=== PATIENT | female | born 1940 | race Caucasian/White ===

== ENCOUNTER 2022-07-14 08:08 | Inpatient (IN) ==
--- NOTE | 2022-06-14 12:41 | PAT Medication Instructions ---
Medication Instructions Date of Service June 14, 2022 Home Medications aspirin 81 mg tablet 81 mg PO QPM atenolol 100 mg-chlorthalidone 25 mg tablet 1 tab PO QAM felodipine 5 mg tablet,extended release 24 hr 5 mg PO QDD furosemide 20 mg tablet 20 mg PO QAM levothyroxine 175 mcg tablet 175 mcg PO UD lorazepam 0.5 mg tablet 0.5 mg PO HS PRN multivitamin-ferrous fumarate-folic acid 18 mg-400 mcg tablet (Centrum Women) 1 tab PO QAM potassium chloride 2.5 mEq tablet 10 meq PO BID sennosides 8.6 mg tablet (Senokot) 8.6 mg PO BID PRN tizanidine 2 mg tablet 2 mg PO QPM PRN trazodone 50 mg tablet 50 mg PO HS vitamins A,C,D-flrk-fegurm 2,148 mcg-113 mg-45 mg-17.4 mg tablet (PreserVision AREDS) 2 tab PO BID Continue as directed felodipine 5 mg tablet,extended release 24 hr 5 mg PO QDD levothyroxine 175 mcg tablet 175 mcg PO UD STOP taking 2 weeks before surgery vitamins A,C,W-yzsf-kiorhp 2,148 mcg-113 mg-45 mg-17.4 mg tablet (PreserVision AREDS) 2 tab PO BID DO NOT take the morning of surgery furosemide 20 mg tablet 20 mg PO QAM multivitamin-ferrous fumarate-folic acid 18 mg-400 mcg tablet (Centrum Women) 1 tab PO QAM potassium chloride 2.5 mEq tablet 10 meq PO BID sennosides 8.6 mg tablet (Senokot) 8.6 mg PO BID PRN Take morning of surgery With a small sip of water, OTHERWISE NOTHING TO EAT OR DRINK AFTER MIDNIGHT: atenolol 100 mg-chlorthalidone 25 mg tablet 1 tab PO QAM Take evening before surgery aspirin 81 mg tablet 81 mg PO QPM (unless directed otherwise by surgeon) lorazepam 0.5 mg tablet 0.5 mg PO HS PRN(if needed) potassium chloride 2.5 mEq tablet 10 meq PO BID sennosides 8.6 mg tablet (Senokot) 8.6 mg PO BID PRN(if needed) tizanidine 2 mg tablet 2 mg PO QPM PRN(if needed) trazodone 50 mg tablet 50 mg PO HS Other Notes If you have any questions please call us at [phone] or [phone] or [phone] or [phone]
--- NOTE | 2022-06-17 11:31 | Anesthesiology Consultation ---
Date of Service June 17, 2022 Assessment & Plan (1) Encounter for pre-operative examination: - Patient acceptable risk for surgery pending surgeon-ordered PCP preop evaluation (Lashon KUMARI, Sacha Kennedy). - Cardiology office visit (01/17/22): "initially seen for shortness of breath and edema. She had elevated BNP. Subsequent BMP was normal. She had an echocardiogram that showed some LVH with normal LV systolic function. I do not see significant diastolic dysfunction. I repeated a BMP and it was only slightly elevated.. Since she is considering surgery and is very limited in activity I think do a Myoview to rule out significant CAD.. Chronic diastolic heart failure.. I think the mildly elevated BNP is related to her longstanding hypertension possibly some mild chronic diastolic heart failure. She is on diuretics and will continue the same along with blood pressure control. We will also proceed with Lexiscan to rule out significant CAD." Follow-up 1 year recommended. Nuclear stress test done 02/17/2022 was unremarkable." - COVID screening: Per assessment on 06/17: No known COVID-19 positive contacts or current COVID-19 related symptoms. Travel screen negative. Patient vaccinated. At surgeon discretion if preop Covid testing being done. - Outpatient joint assessment: Pt currently scheduled for inpatient pathway. If surgeon requests review for outpatient joint pathway, patient is not recommended candidate for outpatient joint program from anesthesia standpoint. - Possible difficult intubation Chart Review Chart Review: Patient seen in Pre Admission Testing Teaching & Discussion Pre-Anesthesia Teaching/Discussion Notes: Instructed NPO after midnight before surgery,except medications with 15 cc of water. Medication instructions provided according to the PAT guidelines. History Surgery Operation Date: 07/14/22 09:00 Proposed Procedures p Right Shoulder Reverse Total Shoulder Arthroplasty - Victor Hugo Zaidi MD Height/Weight Height: 5 ft 6 in Weight: 89.9 kg Allergies Allergy/AdvReac Type Severity Reaction Status Date / Time Sulfa (Sulfonamide Allergy Mild Rash Verified 06/14/22 08:22 Antibiotics) sulfamethoxazole Allergy Mild Rash Verified 06/14/22 08:22 [From Bactrim] trimethoprim [From Bactrim] Allergy Mild Rash Verified 06/14/22 08:22 Medications Home Medications Medication Instructions Recorded Confirmed Last Taken aspirin 81 mg tablet 81 mg PO QPM 06/14/22 06/14/22 Unknown atenolol 100 mg-chlorthalidone 25 1 tab PO QAM 06/14/22 06/14/22 Unknown mg tablet felodipine 5 mg tablet,extended 5 mg PO QDD 06/14/22 06/14/22 Unknown release 24 hr furosemide 20 mg tablet 20 mg PO QAM 06/14/22 06/14/22 Unknown levothyroxine 175 mcg tablet 175 mcg PO UD 06/14/22 06/14/22 Unknown lorazepam 0.5 mg tablet 0.5 mg PO HS PRN Anxiety 06/14/22 06/14/22 Unknown multivitamin-ferrous 1 tab PO QAM 06/14/22 06/14/22 Unknown fumarate-folic acid 18 mg-400 mcg tablet (Centrum Women) potassium chloride 2.5 mEq tablet 10 meq PO BID 06/14/22 06/14/22 Unknown sennosides 8.6 mg tablet (Senokot) 8.6 mg PO BID PRN Constipation 06/14/22 06/14/22 Unknown tizanidine 2 mg tablet 2 mg PO QPM PRN Muscle Spasm 06/14/22 06/14/22 Unknown trazodone 50 mg tablet 50 mg PO HS 06/14/22 06/14/22 Unknown vitamins A,C,C-tkee-qvrmxa 2,148 2 tab PO BID 06/14/22 06/14/22 Unknown mcg-113 mg-45 mg-17.4 mg tablet (PreserVision AREDS) Past Medical History Medical History (Updated 06/17/22 @ 14:14 by Fabiola Thompson) Anxiety Bifascicular block Chronic Diastolic heart failure Hypertension Hypothyroidism Hx radiation therapy (1997) Obesity Poor historian Exercise / Class Metabolic Activity III < 4 Walking/Shop/Light housework Past Family History Family History Other No family history of adverse response to anesthesia Past Surgical History Surgical History Hx of carpal tunnel repair Right Hx of cataract extraction R/L Hx of colonoscopy Hx of eye surgery Retinal procedure Hx of tonsillectomy Past Anesthesia History No Hx of Anesthesia Complications and No Family Hx of Anesthesia Complications History of PONV No Hx of PONV and No Hx of Motion Sickness Social History Smoking Status: Never smoker Do You Dip or Chew Tobacco: No Hx Alcohol Use: No Hx Substance Use: No substance use type: does not use Review of Systems Patient denies chest pain, shortness of breath, fever, chills, cough, wheezing, palpitations. Physical Exam Vital Signs VITALS BP 124/80 P 77 TEMP 98.1 SP02 98%RA RESP 16 PHYSICAL Significantly decreased cervical extension range of motion (r/t arthritis). Full TMJ range of motion. TMD 3finger breaths Mallampati Score 3 Dentition: intact, + crown Lungs: clear throughout to auscultation Cardiac: regular rate and rhythm, no murmurs noted Spine: normal Carotid arteries: negative bruit Extremities: no edema Lab Results Anesthesia Preop Results Results Anesthesia Widget: WBC 7.66 K/ul (4.8-10.8) 06/17/22 Hgb 13.3 g/dl (12.0-16.0) 06/17/22 Hct 39.0 % (34.1-44.9) 06/17/22 Plt 231 K/uL (130-400) 06/17/22 Na 133 mmol/L (136-145) L 06/17/22 K 3.5 mmol/L (3.5-5.1) 06/17/22 Cl 94 mmol/L (98-107) L 06/17/22 CO2 31 mmol/L (21-32) 06/17/22 BUN 16 mg/dl (6-23) 06/17/22 Creat 0.57 mg/dl (0.6-1.2) L 06/17/22 Glucose Level 87 mg/dl (70-99(Fasting)) 06/17/22 PT 11.3 Seconds (9.0-12.0) 06/17/22 PTT 32.3 Seconds (21.0-31.0) H 06/17/22 INR 1.1 (0.9-1.1) 06/17/22 HA1c 5.5 % (4.5-5.6) 06/17/22 Urine Color Yellow 06/17/22 Urine Appearance Clear (Clear) 06/17/22 Urine pH 8.0 (4.5-7.5) H 06/17/22 Urine Specific [place] 1.015 (1.000-1.030) 06/17/22 Urine Protein Negative (Negative) 06/17/22 Urine Glucose (UA) Negative (Negative) 06/17/22 Urine Ketones Negative (Negative) 06/17/22 Urine Blood Negative (Negative) 06/17/22 Urine Nitrite Negative (Negative) 06/17/22 Urine Bilirubin Negative (Negative) 06/17/22 Urine Urobilinogen Negative (Negative) 06/17/22 Urine Leukocyte Esterase Negative (Negative) 06/17/22 Blood Type A Positive 06/17/22 Antibody Screen NEGATIVE 06/17/22 Testing Electrocardiogram Date: 06/17/22 NSR at 62bpm. RBBB. LAFB. *Bifascicular block* Bifascicular block noted on 04/29/22 EKG scanned in [employer] ([facility]). Per that report- the EKG was compared to 08/17/21 EKG and does not report that bifascicular block is new (does mention septal infarct now present and NS TWA has replaced anterior lead TWI). Echo was done 08/17/21 and stress test done 02/17/22. Chest X-Ray Date: 06/17/22 FINDINGS: The lungs are clear. The cardiac silhouette is mildly enlarged. No pleural effusions. No pneumothorax. Advanced degenerative changes within the shoulders. IMPRESSION: Mild cardiomegaly. Otherwise, no acute process within the chest. Echocardiogram Date: 08/17/21 LVEF 55-60%. No regional motion abnormality. Indeterminate diastolic dysfunction. Mild LVH. Moderate mitral annular calcification. Mild MR. Mild aortic sclerosis without stenosis. Trivial AR. Proximal ascending aorta is mildly dilated at 3.87 cm. Trivial pericardial effusion localized near the left ventricle without tamponade physiology. Stress Test Date: 02/17/22 Type: nuclear Myocardial perfusion appears normal following pharmacologic stress with regadenoson. No reversible or fixed ischemia seen. Mild soft tissue attenuation is present. The ejection fractions are normal. COVID-19 Risk Screen Screening Information COVID-19 Screen Date: 06/17/22 Exposure 21 Days Family/Household +COVID Last 21 Days: No Exposure 10 Days Any COVID Exposure Last 10 Days: No Symptoms Last 10 Days Experienced COVID Sx Last 10 Days: No + COVID 0-90 Days COVID + in Last 0-90 Days: No
--- NOTE | 2022-07-13 16:15 | History & Physical Report ---
Date of Service July 13, 2022 Assessment & Plan (1) Primary osteoarthritis, right shoulder: Plan: Treatment options discussed with the patient. She has failed conservative measures. She will proceed with surgical invention. Risks, benefits and alternatives to surgery including but not limited to infection, DVT, pain, stiffness, need for revision surgery, damage to blood vessels, damage to nerves, PE, , were discussed with the patient and they wish to proceed. Plan on right reverse total shoulder arthroplasty scheduled for July 14 at [facility] with Dr. Zaidi. All questions answered. Patient will follow up postop. History of Present Illness Chief Complaint: Right shoulder pain Primary Care Provider: NO PCP 82-year-old female with past medical history significant for hypertension, high cholesterol, hypothyroidism, Diastolic heart failure who presents with ongoing right shoulder pain. Pain is interfering with her daily activities. She has failed conservative measures. She would like to proceed with surgical invention. Patient denies headaches, sweats, fevers, chills, double vision, blurred vision, cough, sore throat, dysphagia, chest pain, sob, wheezing, n/v/d/c, numbness, tingling, fatigue, urinary symptoms, mood disorders. ROS positive for Right shoulder pain and stiffness. Allergies Allergy/AdvReac Type Severity Reaction Status Date / Time Sulfa (Sulfonamide Allergy Mild Rash Verified 07/14/22 08:37 Antibiotics) sulfamethoxazole Allergy Mild Rash Verified 07/14/22 08:37 [From Bactrim] trimethoprim [From Bactrim] Allergy Mild Rash Verified 07/14/22 08:37 Home Medications Medication Instructions Recorded Confirmed Type aspirin 81 mg tablet 81 mg PO QPM 06/14/22 07/14/22 History atenolol 100 mg-chlorthalidone 25 1 tab PO QAM 06/14/22 07/14/22 History mg tablet (Tenoretic) felodipine 5 mg tablet,extended 5 mg PO QDD 06/14/22 07/14/22 History release 24 hr furosemide 20 mg tablet 20 mg PO QAM 06/14/22 07/14/22 History levothyroxine 175 mcg tablet 175 mcg PO UD 06/14/22 07/14/22 History lorazepam 0.5 mg tablet 0.5 mg PO HS PRN Anxiety 06/14/22 07/14/22 History multivitamin-ferrous 1 tab PO QAM 06/14/22 07/14/22 History fumarate-folic acid 18 mg-400 mcg tablet (Centrum Women) potassium chloride 2.5 mEq tablet 10 meq PO BID 06/14/22 07/14/22 History sennosides 8.6 mg tablet (Senokot) 8.6 mg PO BID PRN Constipation 06/14/22 07/14/22 History tizanidine 2 mg tablet 2 mg PO QPM PRN Muscle Spasm 06/14/22 07/14/22 History trazodone 50 mg tablet 50 mg PO HS 06/14/22 07/14/22 History vitamins A,C,T-ffzp-ocleig 2,148 2 tab PO BID 06/14/22 07/14/22 History mcg-113 mg-45 mg-17.4 mg tablet (PreserVision AREDS) Past Med/Surg History Medical History Anxiety Bifascicular block Chronic Diastolic heart failure Hypertension Hypothyroidism Hx radiation therapy (1997) Obesity Poor historian Surgical History Hx of carpal tunnel repair Right Hx of cataract extraction R/L Hx of colonoscopy Hx of eye surgery Retinal procedure Hx of tonsillectomy Family History Other No family history of adverse response to anesthesia Social History Smoking Status: Never smoker Second Hand Exposure: No; Do You Dip or Chew Tobacco: No; Tobacco Cessation Education Requested by Patient: No Hx Alcohol Use: No Hx Substance Use: No Preferred Language: Syriac Communication Ability: Effective 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 Beliefs That Will Affect Care: None Current Living Situation: Spouse Other Information That Helps Us Care for You: No Feels Safe at Home: Yes Safety Concerns: Feels Safe At This Time Assistive Devices: Glasses Review of Systems All systems reviewed & are unremarkable except as noted in HPI & below Physical Exam Constitutional: well developed and well nourished; no acute distress Eyes: PERRL, conjunctivae normal, anicteric sclerae ENMT: external ear and nose normal, oropharynx normal Neck: trachea midline, no thyromegaly Respiratory: normal respiratory effort, lungs clear to auscultation Cardiovascular: RRR, no murmur, no edema Musculoskeletal: Right shoulder: Crepitation with range of motion. Diffuse tenderness about the shoulder. Positive impingement signs. Painful range of motion. Abduction to 20 degrees actively and 40 degrees passively. Forward flexion 20 degrees active, passive 40 degrees. Pain and weakness to strength testing. Skin: no rashes, warm and dry Neurologic: patellar DTR's 2+ bilat, sensation intact Psychiatric: A+Ox3, euthymic affect Results & Data ([facility]) Diagnostic Findings Right shoulder: Patient has end-stage osteoarthritis right shoulder, [id number] glenohumeral joint. There is periarticular osteophyte formation.
[~2022-07-14 08:08] MED LIST: ACETAMINOPHEN 500 MG TAB PO SCH; BUPIVACAINE 0.5 % 5 MG/1 ML PF 10ML VIAL ONE; FAMOTIDINE 20 MG TAB PO SCH; GABAPENTIN 300 MG CAP PO SCH; LR 15ML/HR IV SCH; METOCLOPRAMIDE HCL 10 MG TABLET PO SCH; TRANEXAMIC ACID 1,000 MG **IV Intra-op IV SCH; TRANEXAMIC ACID 1,000 MG **IV Pre-op IV SCH; ceFAZolin 2000MG 2,000 MG/15 ML SYR IV SCH; dexAMETHasone 4 MG TAB PO SCH
--- NOTE | 2022-07-14 09:14 | History & Physical Bridge Note ---
Date of Service July 14, 2022 History & Physical Bridge Note I have examined the patient, reviewed the History & Physical and in the interval since the performance of the History & Physical I have noted the following changes of clinical significance: no changes noted
[2022-07-14] MEDS ORDERED: fentaNYL citrate 100 MCG/2 ML VIAL ONE (09:20)
[2022-07-14] MEDS ORDERED: MIDAZOLAM HCL 1 MG/ML 2ML VIAL ONE (09:20)
[2022-07-14] MEDS ORDERED: PROPOFOL IV EMULSION 10 MG/ML 20 ML VIAL IV ONE (09:20)
[2022-07-14] MEDS ORDERED: DEXAMETHASONE SOD INJ 4 MG/ML VIAL ONE (09:20)
[2022-07-14] MEDS ORDERED: ONDANSETRON INJ 2 MG/ML 2 ML VIAL ONE (09:20)
[2022-07-14] MEDS ORDERED: ONDANSETRON INJ 2 MG/ML 2 ML VIAL IV PRN ×2 (09:48→14:52)
[2022-07-14] MEDS ORDERED: ATROPINE SULFATE 0.1 MG/ML 10ML SYR IV PRN (09:48)
[2022-07-14] MEDS ORDERED: fentaNYL citrate 100 MCG/2 ML VIAL IV PRN (09:48)
[2022-07-14] MEDS ORDERED: ePHEDrine sulfate 50 MG/ML AMP IV PRN (09:48)
[2022-07-14] MEDS ORDERED: GELATIN SPONGE SZ 100 ONE (12:17)
[2022-07-14] MEDS ORDERED: ROCURONIUM BROMIDE 10 MG/ML 5 ML VIAL IV ONE (13:17)
[2022-07-14] MEDS ORDERED: NEOSTIGMINE METHYLSULFATE 1 MG/ML 10ML VIAL ONE (13:17)
[2022-07-14] MEDS ORDERED: GLYCOPYRROLATE 0.2 MG/ML VIAL ONE ×2 (13:17→13:35)
--- NOTE | 2022-07-14 13:49 | Post Operative Brief Note ---
Immediate Post Op Note v1 Date of Surgery July 14, 2022 Pre & Post Diagnosis Operation Date: 07/14/22 10:20 Pre-Op Diagnosis: Primary Osteoarthritis Shoulder Right, chronic rotator cuff tear Post-Op Diagnosis: Primary Osteoarthritis Shoulder Right, chronic rotator cuff tear, marked subacromial bursitis, biceps tendinopathy, biceps tenosynovitis. 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
--- NOTE | 2022-07-14 14:07 | Operative Report ---
Post Operative Report Pre & Post Diagnosis Operation Date: 07/14/22 10:20 Pre-Op Diagnosis: End-stage glenohumeral osteoarthritis right shoulder. Chronic rotator cuff tear. Post-Op Diagnosis: End-stage glenohumeral osteoarthritis right shoulder. Chronic rotator cuff tear. Biceps tendinopathy with biceps tenosynovitis. Marked chronic subacromial bursal effusion. I identified the patient and participated in the time-out.: Yes Procedure Operation Date: 07/14/22 10:20 Actual Procedures p Right Reverse Total Shoulder Arthroplasty--Uncemented(Right), biceps tenodesis and tenosynovectomy- Victor Hugo Zaidi MD Surgeon Victor Hugo Zaidi MD Assistant Dean Kaushal SCHULZ Estimated Blood Loss 250 Findings Consistent with Post-Op Diagnosis Specimens Humeral head cut Drains 2 Hemovac Anesthesia Type General Regional Complications none Disposition Disposition: Recovery Room Indications 82 female with chronic progressive osteoarthritis and pain in her right shoulder. She has weakness and pain. Radiographs demonstrates [id number] in glenohumeral joint. Description of Procedure The patient was taken to the operating room and anesthetized under regional block and general anesthetic. The patient was positioned on the operating table in a 30 beach chair position with a towel roll under the medial border of the right scapula. The arm was draped free to be able to manipulate the shoulder as needed. The right upper extremity was prepped and draped in usual sterile fashion. Exam demonstrated subacromial and glenohumeral crepitation. Patient had an obese arm. Forward flexion was 160 degrees external rotation was 35 to 40 degrees and abduction was 70 degrees. An anterior deltopectoral approach was performed. A longitudinal incision was made in the deltopectoral interval. The skin was incised sharply. Subcutaneous flaps were elevated off the fascia. The cephalic vein was dissected out and retracted lateral with the deltoid. There was a very large area of bursal fluid collection from the subacromial bursa which was overlying the strap muscle and conjoined tendon to some extent and extended onto the deltoid and into the subacromial space. There was a very large fluid collection. The bursa was dissected off of the subscapularis which was still intact. The rotator cuff superiorly was completely torn back to the posterior infraspinatus of which some of the tendon was still intact. Teres minor was intact. The clavipectoral fascia was divided at the lateral margin of the conjoined tendon and extended up to the CA ligament. The large bursal sac was resected. The deltoid was freed off of the posterior humerus with blunt dissection however some bleeding from venous structures occurred and this was packed off and eventually I had to use Gelfoam to help control the bleeding there which was successful. Biceps tendon had severe biceps tenosynovitis from the bicipital groove all the way down to u nderlying the pectoralis tendon. Proximally and near the rotator cuff tear there was widening of the biceps about 2 and half to 3 cm of the widened tendon that extended to the superior glenoid. This was all degenerative tissue. The upper centimeter of the pectoralis was released for inferior exposure. A self-retaining retractor was placed. A thorough biceps tenosynovectomy was performed from the bicipital groove down to below the pec tendon. The biceps tendon was tenodesed to the pectoralis tendon with #2 FiberWire. The proximal biceps was resected. The subscapular muscle fibers were split longitudinally at the level of the circumflex vessels. The circumflex vessels were identified and tied off with silk ties and divided laterally. A Kitner elevator was used to free up the inferior fibers of the subscapularis off of the capsule. The axillary nerve was identified with a tug test and protected with a blunt Nestor retractor between the nerve and the capsule. The subscapularis tendon was then taken down off of the lesser tuberosity subperiosteally, a Vicryl traction suture was placed and a subperiosteal dissection was performed along the neck of the humerus as the arm was gradually externally rotated exposing the humeral head. The humeral head findings demonstrated complete loss articular cartilage with eburnated bone and a defect in the posterior humeral head with evidence of some chronic bleeding and exposed subchondral bone and circumferential osteophytes.. retractors were readjusted and the inferior osteophytes were all resected using an artist chisel. A Pinon elevator was used to assist in releasing the capsule of the neck of the humerus. The capsule was divided with De La Vega scissors down to the glenoid released off the anterior glenoid and the rotator interval was released to meet the capsular release and a 360 release of the subscapularis was accomplished. A Fukuda retractor was placed into the joint retracting the humeral head posterior. Glenoid findings demonstrated eburnated bone with glenoid cysts.. The labrum and biceps tendon were resected. an anterior-inferior and posterior inferior capsular release were performed with electrocautery and a Pinon elevator on bone with the axillary nerve protected inferiorly by the retractor. Attention was then taken to the humeral preparation. Further sharp dissection was performed to remove the degenerative torn rotator cuff tissue away from the intact infraspinatus tissue and the spurs at the greater tuberosity were resected with a rongeur. The cutting guide was placed into the humeral head. It was positioned at 20 of retroversion. Oscillating saw was used to resect the humeral head giving the cut above the level of the posterior rotator cuff insertion site. The humerus was then prepar ed for the stem. I used the ascend flex stem from [email or web address]. The sizing broaches were used followed by trial broaches up to a size 4B long ascend flex stem which had the appropriate fit and fill. The appropriate sized cut protector was placed. The humerus was then retracted posterior to the glenoid. The glenoid was sized for a 25 baseplate. The guide for the baseplate was positioned in a 10 inferior tilt and the central drill hole was made. The reamer for the 25 baseplate was used. The central drill was widened for the peg. The 20 a hydroxyapatite-coated 25 mm baseplate was impacted into position. The base plate was transfixed with superior and inferior locking screws and anterior and posterior compression screws with stable fixation. The fan reamer was used for the 36 mm standard glenoid sphere. After irrigation the 36 mm standard glenoid sphere was impacted onto the baseplate and the security screw was tightened. Attention was taken back to the humerus. The cut protector was removed and the +0 high offset humeral tray trial was assembled to the trial stem rotated appropriately to get bony coverage and then screwed in position. A trial reduction was performed. A +9 reversed trial insert demonstrated good stability and no shuck. The trials were removed. 3 drill holes are made into the harder bone in the bicipital groove area and 3 #5 FiberWire sutures were placed transosseously. The canal was irrigated with saline solution. The final component was assembled. The final component was + verse insert assembled to +0 high offset tray and the 4B long ascend flex PTC stem. This was then impacted into the humerus with a tight press-fit. It was reduced to the glenoid sphere. Stability was verified. Subscapularis was repaired with the #5 FiberWire suture s using Curry-Tadeo suture technique. Lateral row soft tissue repair was performed with #2 FiberWire [id number]-[id number] sutures. The pectoralis was repaired with #2 FiberWire kpigux-wy-eknxn sutures reinforcing the biceps tendon tenodesis. The arm was taken through a range of motion which demonstrated 160 degrees forward flexion 90 degrees abduction external rotation to 45 degrees without tension on repair. The implant was stable through the range of motion tested. The wound was copiously irrigated. 2 Hemovac drains were placed. The deltopectoral interval was closed with [id number]-[id number] #1 Vicryl sutures. The subcutaneous tissues were closed with 2-0 Vicryl sutures. The skin was closed with segun. Sterile dressings were applied and a shoulder immobilizer. Kaushal SCHULZ my physician assistant dean acted as certified nursing assistant instructor throughout the procedure .He performed functions including patient positioning, arm positioning, prepping and draping, soft tissue retraction, instrument natalia gement, suture management and performed the subcutaneous and skin closure and will participate in the postoperative care of the patient. There was more than typical bleeding throughout the case due to generalized oozing and bleeding possibly related to aspirin intake by patient. I attest to the content of the Intraoperative Record and any orders documented therein. Any exceptions are noted below.
--- NOTE | 2022-07-14 14:22 | XRay Report ---
XR shoulder RT min 2V routine HISTORY: 82 years-old Female Post shoulder surgery right shoulder arthroplasty COMPARISON: Chest radiograph 06/17/2022 TECHNIQUE: 2 views of the right shoulder FINDINGS: Reverse right shoulder total joint arthroplasty demonstrates satisfactory alignment. Expected postope rative soft tissue swelling with deep tissue air. Overlying skin segun are noted along with surgica l drainage catheter. No acute fracture or unexpected opaque foreign body. IMPRESSION: Reverse total joint arthroplasty with expected postoperative changes. ACT 112: Negative or not required by law. The above report was generated using voice recognition software. It may contain grammatical, syntax o r spelling errors. Electronically signed by: Cayden Agarwal M.D. 07/14/2022 2:21 PM
--- NOTE | 2022-07-14 14:40 | Anesthesiology Progress Note ---
Date of Service July 14, 2022 Anesthesia Post Procedure Vital Signs Vital Signs: Temp Pulse Pulse Resp BP Pulse Ox O2 Del Method 07/14/22 14:25 74 16 129/69 96 Nasal Cannula 07/14/22 14:15 70 16 129/63 93 Nasal Cannula 07/14/22 14:05 70 16 123/78 93 Room Air 07/14/22 13:55 36.2 C L 71 16 132/74 95 Oxymask 07/14/22 08:50 36.6 C 62 20 159/79 H 97 Room Air O2 Flow Rate 07/14/22 14:25 3 07/14/22 14:15 4 07/14/22 14:05 07/14/22 13:55 5 07/14/22 08:50 Pain Intensity Right Shoulder: Pain Intensity: 3
[2022-07-14] MEDS ORDERED: SENNA 8.6 MG TAB PO PRN (14:52)
[2022-07-14] MEDS ORDERED: NALOXONE HCL 0.4 MG/1 ML VIAL/CARP IV PRN (14:52)
[2022-07-14] MEDS ORDERED: METOCLOPRAMIDE HCL INJ 5 MG/ML 2 ML VIAL IV PRN (14:52)
[2022-07-14] MEDS ORDERED: MAGNESIUM HYDROXIDE SUSP 30 ML UDC PO PRN (14:52)
[2022-07-14] MEDS ORDERED: HYDROmorphone INJ 0.5 MG/0.5 ML SYR IV PRN (14:52)
[2022-07-14] MEDS ORDERED: tiZANidine HCL 4 MG TABLET PO PRN (14:52)
[2022-07-14] MEDS ORDERED: bisacodyL 10 MG SUPP PR PRN (14:52)
[2022-07-14] MEDS: SODIUM CHLORIDE 0.9% 1000ML 1,000 ML IV SCH (15:02)
[2022-07-14] MEDS: ACETAMINOPHEN 500 MG TAB PO SCH ×2 (15:42→21:13)
--- NOTE | 2022-07-14 16:00 | Hospitalist Consultation ---
Date of Consultation July 14, 2022 Assessment & Plan (1) Primary osteoarthritis, right shoulder: - POD #0, EBL 250 cc, 2 hemovac drains placed, no complications. - Pain/ABX/IVF/diet/drain management/transfusion needs/activity per primary team - Rescue Narcan ordered for over sedation PRN - VTE prophylaxis per primary service- SCDs in place - CBC and BMP in AM. - Baseline renal function: BUN 16, creatinine 0.57, GFR 84.7 - Baseline Hgb: 13.3 on 06/17 (2) Diastolic heart failure: - Echo in 2020: Ef 55-60% with mild LVH and mild MR. - Appears euvolemic on exam. - Continue Lasix 20 mg daily. (3) Hypertension: - Normotensive postoperatively. - Continue atenolol/chlorthalidone, felodipine. (4) Hypothyroidism: - Continue Synthroid. (5) Anxiety: - Continue lorazepam 0.5 mg HS prn. - Continue trazodone 50 mg HS. (6) Bifascicular block: - Known, chronic. Supervising Physician Co-Signing Physician Notes Patient seen and examined, chart reviewed, case discussed with Kathrine Becerra PA-C and I agree with the assessment and plan as above except as otherwise noted Labs and images reviewed Kerry is a 82-year-old female with past medical history of diastolic heart failure, hypertension, hypothyroidism, and hyperlipidemia who presented for scheduled surgical intervention of right shoulder arthritis. She is status post right reverse total shoulder arthroplasty 07/14/2022, we have been consulted for medical management.Doing well postop, CTA B/RRR, no overt fluid overload. Postoperative hypoxia: Rapidly weaning from 3 L to 1 L, no home oxygen requirement. Suspect postop atelectasis. Relatively euvolemic. Continue incentive spirometry, resume home Lasix. BMP daily, resume antihypertensives as below. Diastolic heart failure: No acute decompensation. Stress echo 01/2022 was normal without reversible or fixed ischemia, LV SF normal, EF normal. Continue Lasix 20 mg daily. Continue atenololchlorthalidone [id number] daily. Continue aspirin 81 mg daily, DVT prophylaxis per primary team. Hypertension: Continue atenolol/chlorthalidone/Lasix as above. Continue felodipine ER daily. Hypothyroidism: Continue Synthroid 150 mcg daily. Hyperlipidemia: Followed as outpatient, continue outpatient monitoring History of Present Illness Attending Physician: Victor Hugo Zaidi MD History of Present Illness Kerry Downey is an 82 y/o female with a PMH significant HFpEF, HTN, anxiety, hypothyroidism, and OA for who was admitted today, 07/14 for a right shoulder arthroplasty after failing conservative management. Hospitalist group was consulted for post-operative medication management. Today, she is POD#0 and feels well. Denies fever/chills, weakness, chest pain, palpitations, shortness of breath, cough, orthopnea, abdominal pain, nausea, vomiting, numbness, tingling in any extremities. Breathing comfortably and resting in bed without any complaints. About to ambulate with nursing staff. pain. Allergies Allergy/AdvReac Type Severity Reaction Status Date / Time Sulfa (Sulfonamide Allergy Mild Rash Verified 07/14/22 08:37 Antibiotics) sulfamethoxazole Allergy Mild Rash Verified 07/14/22 08:37 [From Bactrim] trimethoprim [From Bactrim] Allergy Mild Rash Verified 07/14/22 08:37 Home Medications Medication Instructions Recorded Confirmed Type aspirin 81 mg tablet 81 mg PO QPM 06/14/22 07/14/22 History atenolol 100 mg-chlorthalidone 25 1 tab PO QAM 06/14/22 07/14/22 History mg tablet (Tenoretic) felodipine 5 mg tablet,extended 5 mg PO QDD 06/14/22 07/14/22 History release 24 hr furosemide 20 mg tablet 20 mg PO QAM 06/14/22 07/14/22 History levothyroxine 175 mcg tablet 175 mcg PO UD 06/14/22 07/14/22 History lorazepam 0.5 mg tablet 0.5 mg PO HS PRN Anxiety 06/14/22 07/14/22 History multivitamin-ferrous 1 tab PO QAM 06/14/22 07/14/22 History fumarate-folic acid 18 mg-400 mcg tablet (Centrum Women) potassium chloride 2.5 mEq tablet 10 meq PO BID 06/14/22 07/14/22 History sennosides 8.6 mg tablet (Senokot) 8.6 mg PO BID PRN Constipation 06/14/2207/14 History tizanidine 2 mg tablet 2 mg PO QPM PRN Muscle Spasm 06/14/22 07/14/22 History trazodone 50 mg tablet 50 mg PO HS 06/14/22 07/14/22 History vitamins A,C,T-wfwq-ihitwd 2,148 2 tab PO BID 06/14/22 07/14/22 History mcg-113 mg-45 mg-17.4 mg tablet (PreserVision AREDS) Patient History Medical History Anxiety Bifascicular block Chronic Diastolic heart failure Hypertension Hypothyroidism Hx radiation therapy (1997) Obesity Poor historian Surgical History Hx of carpal tunnel repair Right Hx of cataract extraction R/L Hx of colonoscopy Hx of eye surgery Retinal procedure Hx of tonsillectomy Family History Other No family history of adverse response to anesthesia Social History Smoking Status: Never smoker Second Hand Exposure: No; Do You Dip or Chew Tobacco: No; Tobacco Cessation Education Requested by Patient: No Hx Alcohol Use: No Hx Substance Use: No Preferred Language: Mongolian Communication Ability: Effective Fleecer Required: No Beliefs That Will Affect Care: None marital status: Current Living Situation: Spouse Other Information That Helps Us Care for You: No Feels Safe at Home: Yes Safety Concerns: Feels Safe At This Time Assistive Devices: None Review of Systems Review of Systems: Constitutional: No fever/chills, weakness, fatigue, myalgias, anorexia, night sweats Eyes: No diplopia, no worsening or blurred vision ENT: normal hearing, no trouble swallowing Respiratory: No cough, sputum, dyspnea at rest or on exertion Cardiovascular: No chest pain, tightness or palpitations Abdomen: No pain, nausea, vomiting, diarrhea or constipation : Denies dysuria, hematuria, increased urgency/frequency, urinary retention Musculoskeletal: No joint pain, calf pain, swelling Neurologic: No weakness, numbness/tingling, or balance problems Psychiatric: No anxiety or depression Skin: No rash or itch Physical Exam Physical Exam: General: awake, alert, no apparent distress Head: Normocephalic, atraumatic ENT: PERRL, EOMI, no pharyngeal exudate, mucous membranes moist Chest: Clear to auscultation, on room air, no adventitious breath sounds Cardiac: Regular rate and rhythm, no murmur, no JVD, normal peripheral pulses, good capillary refill Abdominal: NABS x 4 quadrants, soft, nontender to palpation, no rebound, guarding or tenderness Extremities: Normal inspection, no peripheral edema or erythema, calfs nontender to palpation Psych: Normal mood and affect Neuro: AAO x 3, strength intact bilaterally and rated 5/5, no motor deficits, speech is clear, no peripheral sensory deficits Skin: no rash or erythema Results & Data Results & Data ([facility]) Vital Signs (Past 12 Hours) Vital Signs Temp Pulse Pulse Resp BP Pulse Ox O2 Del Method 07/14/22 15:46 81 18 110/69 94 Nasal Cannula 07/14/22 14:50 Nasal Cannula 07/14/22 14:50 36.6 C 78 18 120/76 97 Nasal Cannula 07/14/22 15:16 36.9 C 75 18 120/74 96 Nasal Cannula 07/14/22 14:25 74 16 129/69 96 Nasal Cannula 07/14/22 14:15 70 16 129/63 93 Nasal Cannula 07/14/22 14:05 70 16 123/78 93 Room Air 07/14/22 13:55 36.2 C L 71 16 132/74 95 Oxymask 07/14/22 08:50 36.6 C 62 20 159/79 H 97 Room Air O2 Flow Rate 07/14/22 15:46 1 07/14/22 14:50 3 07/14/22 14:50 3 07/14/22 15:16 3 07/14/22 14:25 3 07/14/22 14:15 4 07/14/22 14:05 07/14/22 13:55 5 07/14/22 08:50 PG Care Time/CCT Total # of Minutes Spent Total Time Spent with Patient: Total time spent is greater than 50% in coordination of care (as documented) at patient's floor/unit and/or counseling patient: Coding Level of Care Code 93192 Inpt Consult Level 3 Diagnoses Primary osteoarthritis, right shoulder M19.011 Diastolic heart failure I50.30 Hypertension I10 Hypothyroidism E03.9 Anxiety F41.9 Bifascicular block I45.2
[2022-07-14] MEDS: FELODIPINE 5 MG TABCR PO SCH (17:29)
[2022-07-14] MEDS: ceFAZolin 2000MG 2,000 MG/15 ML SYR IV SCH (19:59)
[2022-07-14] MEDS: SENNA 8.6 MG TAB PO SCH (20:00)
[2022-07-14] MEDS: DOCUSATE SODIUM 100 MG CAP PO SCH (20:01)
[2022-07-14] MEDS: traZODone HCL 50 MG TAB PO SCH (20:01)
[2022-07-14] MEDS ORDERED: POTASSIUM CHLORIDE 10 MEQ TABCR PO SCH (21:00)
[2022-07-14] MEDS ORDERED: NON-FORMULARY MEDICATION (Vitamins A,C,E-Zinc-Copper [Preservision Areds] 2,148 mcg-113 mg PO SCH (21:00)
[2022-07-14] MEDS: ASPIRIN 81 MG ECTAB PO SCH (21:13)
[2022-07-15] MEDS: SODIUM CHLORIDE 0.9% 1000ML 1,000 ML IV SCH (00:23)
[2022-07-15] MEDS: ceFAZolin 2000MG 2,000 MG/15 ML SYR IV SCH (03:08)
[2022-07-15] MEDS: LORazepam 0.5 MG TAB PO PRN (03:10)
[2022-07-15] MEDS: ACETAMINOPHEN 500 MG TAB PO SCH ×3 (06:07→22:11)
[2022-07-15 06:34] LABS: Basophils # (auto) 0.03 K/uL (0-0.2); Basophils % (auto) 0.2 %; Eosinophils # (auto) 0.01 K/uL (0-0.50); Eosinophils % (auto) 0.1 %; Hematocrit (blood only) 34.7 % (34.1-44.9); Hemoglobin 11.9 g/dl (12.0-16.0); Immature Granulocytes # (auto) 0.06 K/uL (0.00-0.02); Immature Granulocytes % (auto) 0.5 %; Lymphocytes # (auto) 1.95 K/uL (1.2-3.4); Lymphocytes % (auto) 15.9 %; Mean Corpuscular Hemoglobin 31.5 pg (25.0-34.0); Mean Corpuscular Hgb Conc 34.3 g/dL (32.0-36.0); Mean Corpuscular Volume 91.8 fL (80.0-100.0); Mean Platelet Volume 10.3 fL (9.4-12.3); Monocytes # (auto) 1.12 K/uL (0.24-0.82); Monocytes % (auto) 9.1 %; Neutrophils % (auto) 74.2 %; Platelet Count 227 K/uL (130-400); RDW Coefficient of Variation 13.4 % (11.5-14.5); Red Blood Count 3.78 M/uL (3.93-5.22); White Blood Count 12.27 K/ul (4.8-10.8)
[2022-07-15 07:02] LABS: Creatinine Clr Calc Pharmacy 79.9 ml/min; Est GFR (African American) 97.7 ml/min; Est GFR (Non-African American) 84.3 ml/min; Potassium 2.9 mmol/L (3.5-5.1)
--- NOTE | 2022-07-15 07:45 | Orthopedic Progress Note ---
Date of Service July 15, 2022 Assessment & Plan (1) Primary osteoarthritis, right shoulder: Plan: Postop day #1 right reverse total shoulder arthroplasty -PT/OT: May do elbow/wrist/hand motion, shrugs, pendulums. If she does decide that she wants inpatient rehab can follow reverse TSA protocol. No active motion of her shoulder at this time. -DVT prophylaxis: SCDs, teds, aspirin 81 Milligrams daily -Pain management as written -AM labs: Mild leukocytosis likely reactive due to surgical stress. Hemoglobin 11.3 mild drop from baseline of 13 due to surgical loss versus dilutional. Labs demonstrate potassium at 2.9 from 3.5 preop. -Medicine consult in place -Discharge planning: Patient may want inpatient rehab. Case management consult placed. She will discuss with them and see how she does with therapy/OT today. Plan on discharge when stable. Admission and Anticipated Discharge Date Admission Date: July 14, 2022 Subjective Patient is sitting on bedside upon arrival. She is doing well this morning. Pain is well controlled. She has no other complaints. She is deciding if she wants to go to inpatient rehab. Review of Systems Review of Systems: All systems reviewed & are unremarkable except as noted in Subjective Physical Exam Physical Exam: Right shoulder: Sling in place. Dressing is clean, dry, intact. Hemovac on suction. Fingers are mobile with good pool nurse strength. Distally neurovascular status and sensation intact. Mildly decreased sensation in fingers likely residual from block. Constitutional: well developed and well nourished; no acute distress Results & Data ([facility]) Vital Signs (Past 12 Hours) Vital Signs Temp Pulse Resp BP Pulse Ox O2 Del Method 07/15/22 07:23 36.6 C 07/15/22 07:11 65 16 131/76 94 Room Air 07/15/22 00:01 36.7 C 76 18 115/71 94 Room Air 07/14/22 19:59 36.5 C 78 18 108/68 93 Room Air
[2022-07-15] MEDS ORDERED: CHLORTHALIDONE 25 MG TAB PO SCH (09:00)
[2022-07-15] MEDS ORDERED: MULTIVITAMIN TAB PO SCH (09:00)
[2022-07-15] MEDS ORDERED: LEVOTHYROXINE SODIUM 175 MCG TABLET PO SCH (09:00)
[2022-07-15] MEDS ORDERED: ATENOLOL CHLORTHALIDONE PO SCH (09:00)
[2022-07-15] MEDS: DOCUSATE SODIUM 100 MG CAP PO SCH ×2 (09:50→20:10)
[2022-07-15] MEDS: FUROSEMIDE 20 MG TAB PO SCH (09:50)
[2022-07-15] MEDS: CEROVITE ADV FORMULA TAB PO SCH (09:50)
[2022-07-15] MEDS: ATENOLOL 50 MG TABLET PO SCH (09:51)
[2022-07-15] MEDS: POTASSIUM CHLORIDE CRTAB 20 MEQ TABCR PO SCH ×2 (09:56→14:47)
--- NOTE | 2022-07-15 13:07 | Hospitalist Progress Note ---
Date of Service July 15, 2022 Assessment & Plan (1) Primary osteoarthritis, right shoulder: Plan: - POD #1 s/p R TSA by Dr. Zaidi - Pain/ABX/IVF/diet/drain management/transfusion needs/activity per primary team - VTE prophylaxis per primary service- SCDs in place - Encourage IS use q1-2w wa - PT/OT as able, shoulder immobilization as instructed by ortho - CM to assist in dc planning ?rehab (2) Diastolic heart failure: Plan: - Echo in 2020: Ef 55-60% with mild LVH and mild MR. - Appears euvolemic on exam. - Continue Lasix 20 mg daily. (3) Hypertension: Plan: - Normotensive postoperatively. - Continue atenolol/chlorthalidone, felodipine. (4) Hypothyroidism: Plan: - Continue Synthroid. Recently had med adjusted, f/u with PCP for recheck of TFTs in Aug as scheduled. (5) Anxiety: Plan: - Continue lorazepam 0.5 mg HS prn. - Continue trazodone 50 mg HS. (6) Bifascicular block: Plan: - Known, chronic. Plan Patient noted to have hypokalemia of 2.9 on labs this AM. Replacement has been provided. Diuretic-induced from chlorthalidone + lasix. Continue home maint enance supplementation. No other recommendations for this patient, thank you for allowing us to participate her care. Will sign off as she is medically suitable for dc once dispo/plan finalized and cleared by primary service. Please feel free to reach out/notify of any acute needs while patient remains in house. Above plan of care d/w Dr. Lopez. Admission and Anticipated Discharge Date Admission Date: July 14, 2022 Subjective Patient seen on daily rounds this morning. She is s/p R TSA performed by Dr. Zaidi on 07/14. She is doing well pod #1 and reports pain is adequately controlled. She denies cp or dyspnea. No n/v. 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 She is voiding w/o issue. Hasn't had a BM but is passing flatus. Review of Systems Review of Systems: All systems reviewed and are unremarkable except as noted in HPI and below. Denies fever, chills, fatigue, headache, nasal congestion, sore throat, cough, chest pain, shortness of breath, palpitations, orthopnea, PND, abdominal pain, n/v/d, constipation, dysuria, hematuria, frequency, back pain, easy bruising or bleeding, skin lesions or rashes. Physical Exam Physical Exam: GENERAL: 82 yo Well-developed, well-nourished elderly WF. NAD. LUNGS: Clear to auscultation bilaterally. No W/R/R. CARDIOVASCULAR: Regular rate and rhythm. ABDOMEN: Soft, non-tender and non-distended. BS normoactive x 4 quad. EXTREMITIES: No edema. Non-tender. Peripheral pulses +2/4. R shoulder incision dressed, shoulder in immobilizer. R UE NV intact. NEUROLOGIC: A&O x3. Nonfocal PSYCHIATRIC: Cooperative. Appropriate mood and affect. SKIN: Warm, dry, intact. No rashes or lesions. Results & Data Results & Data ([facility]) Vital Signs (Past 12 Hours) Vital Signs Temp Pulse Resp BP Pulse Ox O2 Del Method 07/15/22 07:23 36.6 C 07/15/22 07:11 65 16 131/76 94 Room Air Laboratory Results 07/15/22 06:02 07/15/22 06:02 PG Care Time/CCT Total # of Minutes Spent Total Time Spent with Patient: Total time spent is greater than 50% in coordination of care (as documented) at patient's floor/unit and/or counseling patient: Coding Level of Care Code 36962 Subseq Hosp Care Lvl 2 Diagnoses Primary osteoarthritis, right shoulder M19.011 Diastolic heart failure I50.30 Hypertension I10 Hypothyroidism E03.9 Anxiety F41.9 Bifascicular block I45.2
[2022-07-15] MEDS: FELODIPINE 5 MG TABCR PO SCH (16:38)
[2022-07-15] MEDS: oxyCODONE HCL IR 5 MG TAB (IMMEDIATE RELEASE) PO PRN (18:51)
[2022-07-15] MEDS: ASPIRIN 81 MG ECTAB PO SCH (20:09)
[2022-07-15] MEDS: traZODone HCL 50 MG TAB PO SCH (20:09)
[2022-07-15] MEDS: SENNA 8.6 MG TAB PO SCH (20:10)
[2022-07-16] MEDS: LORazepam 0.5 MG TAB PO PRN (01:36)
[2022-07-16] MEDS: oxyCODONE HCL IR 5 MG TAB (IMMEDIATE RELEASE) PO PRN ×4 (01:36→16:02)
[2022-07-16] MEDS: ACETAMINOPHEN 500 MG TAB PO SCH ×2 (05:50→14:17)
[2022-07-16 07:42] LABS: Calcium 8.5 mg/dl (8.5-10.1); Creatinine Clr Calc Pharmacy 76.1 ml/min; Est GFR (African American) 96.1 ml/min; Est GFR (Non-African American) 82.9 ml/min; Potassium 2.7 mmol/L (3.5-5.1)
--- NOTE | 2022-07-16 08:42 | Orthopedic Progress Note ---
Date of Service July 16, 2022 Assessment & Plan (1) Primary osteoarthritis, right shoulder: Plan: Postop day #2 right reverse total shoulder arthroplasty -PT/OT: May do elbow/wrist/hand motion, shrugs, pendulums. Follow reverse TSA protocol. -DVT prophylaxis: SCDs, teds, aspirin 81 Milligrams daily -Pain management as written -AM labs: Labs demonstrate Hypokalemiamedicine on board. They have replaced this. Patient is stable for discharge per medicine -Medicine consult in place -Discharge planning: Plan on inpatient rehab. Patient is stable for discharge once this is set up. Admission and Anticipated Discharge Date Admission Date: July 14, 2022 Subjective Patient is sitting in bedside chair. She is doing well this. Plan discharge likely today. No current complaints. Review of Systems Review of Systems: All systems reviewed & are unremarkable except as noted in Subjective Physical Exam Physical Exam: Right shoulder: Sling in place. Dressing is clean, dry, intact. Hemovac on suction. 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 Distally neurovascular status and sensation intact. Mildly decreased sensation in fingers likely residual from block. Results & Data ([facility]) Vital Signs (Past 12 Hours) Vital Signs Temp Pulse Resp BP Pulse Ox O2 Del Method 07/16/22 07:40 36.5 C 58 L 16 110/69 97 Room Air 07/15/22 23:10 36.6 C 63 18 123/76 95 Room Air
[2022-07-16] MEDS: CEROVITE ADV FORMULA TAB PO SCH (09:17)
[2022-07-16] MEDS: FUROSEMIDE 20 MG TAB PO SCH (09:17)
[2022-07-16] MEDS: DOCUSATE SODIUM 100 MG CAP PO SCH (09:17)
[2022-07-16] MEDS: ATENOLOL 50 MG TABLET PO SCH (09:18)
[2022-07-16] MEDS: POTASSIUM CHLORIDE CRTAB 20 MEQ TABCR PO SCH ×2 (09:18→14:17)
[2022-07-16] MEDS: POTASSIUM CHLORIDE / WTR 10 MEQ/100 ML PLCT IV SCH ×2 (10:11→10:58)
[2022-07-16] MEDS ORDERED: POTASSIUM CHLORIDE CRTAB 20 MEQ TABCR PO STA (14:12)
--- NOTE | 2022-07-16 14:44 | Communication Note ---
Date of Service: July 16, 2022 Notified this AM that patient's potassium still low at 2.7 despite oral replacement ordered 07/15. Chart reviewed and additional replacement ordered this morning in form of two doses of 40meq PO and K-Riders 10meq IV x2 doses. Unfortunately, pt kept losing IV access and only one of the two K riders able to infuse. Subsequently, the second K rider will not be administered. Will receive her second oral KCl dose prior to dc to rehab this afternoon. Her Chlorthalidone has been discontinued and would recommend a repeat of her potassium level in 3-5 days since stopping her diuretic. Patient was not physically seen or examined today.
--- NOTE | 2022-07-17 07:29 | Discharge Summary ---
Date of Service July 17, 2022 Admission HPI Per Admitting Provider 82-year-old female with past medical history significant for hypertension, high cholesterol, hypothyroidism, Diastolic heart failure who presents with ongoing right shoulder pain. Pain is interfering with her daily activities. She has failed conservative measures. She would like to proceed with surgical invention. Patient denies headaches, sweats, fevers, chills, double vision, blurred vision, cough, sore throat, dysphagia, chest pain, sob, wheezing, n/v/d/c, numbness, tingling, fatigue, urinary symptoms, mood disorders. ROS positive for Right shoulder pain and stiffness. Admission Exam Per Admitting Provider Constitutional: well developed and well nourished; no acute distress Eyes: PERRL, conjunctivae normal, anicteric sclerae ENMT: external ear and nose normal, oropharynx normal Neck: trachea midline, no thyromegaly Respiratory: normal respiratory effort, lungs clear to auscultation Cardiovascular: RRR, no murmur, no edema Musculoskeletal: Right shoulder: Crepitation with range of motion. Diffuse tenderness about the shoulder. Positive impingement signs. Painful range of motion. Abduction to 20 degrees actively and 40 degrees passively. Forward flexion 20 degrees active, passive 40 degrees. Pain and weakness to strength testing. Skin: no rashes, warm and dry Neurologic: patellar DTR's 2+ bilat, sensation intact Psychiatric: A+Ox3, euthymic affect Principal Diagnosis Right shoulder osteoarthritis Discharge Exam Right shoulder: Sling in place. Dressing is clean, dry, intact. Hemovac on suction. 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 Distally neurovascular status and sensation intact. Mildly decreased sensation in fingers likely residual from block. Constitutional well developed and well nourished; no acute distress Discharge Data Allergies Allergy/AdvReac Type Severity Reaction Status Date / Time Sulfa (Sulfonamide Allergy Mild Rash Verified 07/14/22 08:37 Antibiotics) sulfamethoxazole Allergy Mild Rash Verified 07/14/22 08:37 [From Bactrim] trimethoprim [From Bactrim] Allergy Mild Rash Verified 07/14/22 08:37 Consultations 07/12/22 12:41 Consult Hospitalist Routine Procedures Performed Operation Date: 07/14/22 10:20 Actual Procedures p Right Reverse Total Shoulder Arthroplasty--Uncemented(Right) - Victor Hugo Zaidi MD Ordered Studies 07/14/22 12:43 US - OR guided needle placemen Routine Hospital Course (1) Primary osteoarthritis, right shoulder: Postop day #2 right reverse total shoulder arthroplasty -PT/OT: May do elbow/wrist/hand motion, shrugs, pendulums. Follow reverse TSA protocol. -DVT prophylaxis: SCDs, teds, aspirin 81 Milligrams daily -Pain management as written -AM labs: Labs demonstrate Hypokalemia, medicine on board. They have replaced this. Patient is stable for discharge per medicine -Medicine consult in place -Discharge planning: Plan on inpatient rehab. Patient is stable for discharge once this is set up. Postop day #1 right reverse total shoulder arthroplasty -PT/OT: May do elbow/wrist/hand motion, shrugs, pendulums. If she does decide that she wants inpatient rehab can follow reverse TSA protocol. No active mot ion of her shoulder at this time. -DVT prophylaxis: SCDs, teds, aspirin 81 Milligrams daily -Pain management as written -AM labs: Mild leukocytosis likely reactive due to surgical stress. Hemoglobin 11.3 mild drop from baseline of 13 due to surgical loss versus dilutional. Labs demonstrate potassium at 2.9 from 3.5 preop. -Medicine consult in place -Discharge planning: Patient may want inpatient rehab. Case management consult placed. She will discuss with them and see how she does with therapy/OT today. Plan on discharge when stable. Lab Results 07/14/22 07/15/22 07/15/22 Range/Units Unknown 06:02 06:02 WBC 12.27 H (4.8-10.8) K/ul RBC 3.78 L (3.93-5.22) M/uL Hgb 11.9 L (12.0-16.0) g/dl Hct 34.7 (34.1-44.9) % MCV 91.8 (80.0-100.0) fL MCH 31.5 (25.0-34.0) pg MCHC 34.3 (32.0-36.0) g/dL RDW Std Deviation 45.0 (36.4-46.3) fL RDW Coeff of Albino 13.4 (11.5-14.5) % Plt Count 227 (130-400) K/uL MPV 10.3 (9.4-12.3) fL Immature Gran % (Auto) 0.5 % Neut % (Auto) 74.2 % Lymph % (Auto) 15.9 % [place] % (Auto) 9.1 % Eos % (Auto) 0.1 % Baso % (Auto) 0.2 % Neut # (Auto) 9.10 H (1.4-6.5) K/uL Lymph # (Auto) 1.95 (1.2-3.4) K/uL [place] # (Auto) 1.12 H (0.24-0.82) K/uL Eos # (Auto) 0.01 (0-0.50) K/uL Baso # (Auto) 0.03 (0-0.2) K/uL Immature Gran # (Auto) 0.06 H (0.00-0.02) K/uL Sodium 135 L (136-145) mmol/L Potassium 2.9 L (3.5-5.1) mmol/L Chloride 97 L (98-107) mmol/L Carbon Dioxide 30 (21-32) mmol/L Anion Gap 8 (3-11) BUN 12 (6-23) mg/dl Creatinine 0.60 (0.6-1.2) mg/dl Est Cr Clr Drug Dosing 79.9 ml/min Est GFR ( Amer) 97.7 ml/min Est GFR (Non-Af Amer) 84.3 ml/min BUN/Creatinine Ratio 20.0 (10-20) Glucose 93 (70-99(Fasting)) mg/dl Calcium 9.0 (8.5-10.1) mg/dl SARS-CoV-2, RNA, NAAT NEGATIVE (NEGATIVE) 07/16/22 Range/Units 06:35 WBC (4.8-10.8) K/ul RBC (3.93-5.22) M/uL Hgb (12.0-16.0) g/dl Hct (34.1-44.9) % MCV (80.0-100.0) fL MCH (25.0-34.0) pg MCHC (32.0-36.0) g/dL RDW Std Deviation (36.4-46.3) fL RDW Coeff of [place]ino (11.5-14.5) % Plt Count (130-400) K/uL MPV (9.4-12.3) fL Immature Gran % (Auto) % Neut % (Auto) % Lymph % (Auto) % [place] % (Auto) % Eos % (Auto) % Baso % (Auto) % Neut # (Auto) (1.4-6.5) K/uL Lymph # (Auto) (1.2-3.4) K/uL [place] # (Auto) (0.24-0.82) K/uL Eos # (Auto) (0-0.50) K/uL Baso # (Auto) (0-0.2) K/uL Immature Gran # (Auto) (0.00-0.02) K/uL Sodium 134 L (136-145) mmol/L Potassium 2.7 L (3.5-5.1) mmol/L Chloride 96 L (98-107) mmol/L Carbon Dioxide 30 (21-32) mmol/L Anion Gap 8 (3-11) BUN 12 (6-23) mg/dl Creatinine 0.63 (0.6-1.2) mg/dl Est Cr Clr Drug Dosing 76.1 ml/min Est GFR ( Amer) 96.1 ml/min Est GFR (Non-Af Amer) 82.9 ml/min BUN/Creatinine Ratio 19.0 (10-20) Glucose 91 (70-99(Fasting)) mg/dl Calcium 8.5 (8.5-10.1) mg/dl SARS-CoV-2, RNA, NAAT (NEGATIVE) Total Time Total Time Spent Total Time Spent (In Minutes): 20 Discharge Plan Discharge Items Patient Disposition: Transfer Inpatient Rehab Fac Reason For Visit: Primary Osteoarthritis Shoulder Right Discharge Diagnosis: Right shoulder osteoarthritis, rotator cuff tear Activity: Per Instructions section Non-emergency contact: Surgeon Call non-emergency contact if: you have any medication questions, your pain is not controlled, your pain is concerning for you, you have a fever, your temperature is above 101, your wound has increased redness and your wound has increased drainage Follow-up/Referrals: Lashon Leroy CRNP [Primary Care Provider] - Diet: Regular Addtl Attending Provider Instructions: ACTIVITY RECOMMENDATIONS: SELF CARE INSTRUCTIONS AFTER TOTAL SHOULDER ARTHROPLASTY REVERSE A. You may do daily exercises as taught in physical therapy while in hospital. No lifting with the operative arm. B. You are to wear your sling/immobilizer at all times EXCEPT when performing your daily exercises and for hygiene purposes. C. You may perform dry, daily dressing changes. Please keep your incision covered. You may shower 48 hours after surgery. Do not apply soap or any ointment/lotions directly over incision. Do not soak incision in bath tub/swimming pool. D. You may use ice as needed to operative shoulder. SPECIAL CARE INSTRUCTIONS: VERY IMPORTANT TO READ AND REVIEW A. There are a few signs you need to watch for after you are home. Call [facility] at [phone] if you experience any of the followin. Increased severe shoulder pain. Some pain is expected especially when you exercise. 2. Increased swelling in you shoulder or arm; pain or swelling in either upper extremity. 3. Any fluid drainage from the incision. 4. Shortness of breath or chest pain. B. Please call [facility] at [phone] if you have any questions or concerns about your operation or recovery. C. Call your physician if: 1. Temperature is greater than 101 degrees (F). 2. Pain is not relieved by prescribed pain medications. 3. Increase drainage or redness from incision. 4. Unanswered questions or concerns. FOLLOW UP VISIT: Please call [facility] at [phone] to schedule a follow up appointment with Dr. Zaidi or his PA in 12-14 days from your surgery date. Addtl Fire Prevention Chief Provider Instructions: Please note, you had electrolyte abnormalities during your hospitalization mainly due to loss of potassium. This is likely due to you being on two different types of fluid pills. Your chlorthalidone which is taken in combinati on with atenolol for blood pressure has been discontinued. A new prescription for Atenolol only has been sent to your pharmacy. You were also given potassium replacement during your stay. You will need to continue taking additional potassium upon your return home but you may not need as much given you will no longer be taking the Chlorthalidone. Please try to incorporate potassium into your diet. You should have follow up blood work to recheck your potassium by your primary care physician. Pending Studies at Discharge: No Stand-Alone Forms: [employer], Smoking Cessation Skilled Items Patient informed of condition?: Yes DNR: No Discharge Level of Care: Acute rehab Communicable Disease: No Discharge Prognosis: Improving Lines: None Urinary Catheter: No Medications and DC Order Prescriptions: New acetaminophen [Tylenol Extra Strength] 500 mg Tablet 1,000 mg PO Q8 Qty: 60 0RF oxycodone 5 mg Tablet 5 - 10 mg PO .Q4h-6h MDD 6 PRN (Reason: pain) Qty: 30 0RF Rx Instructions: Ongoing therapy, Dr. Zaidi supervising atenolol 100 mg tablet 100 mg PO DAILY Qty: 30 0RF Continued felodipine 5 mg Tablet Extended Release 24 Hr 5 mg PO QDD aspirin 81 mg Tablet 81 mg PO QPM furosemide 20 mg Tablet 20 mg PO QAM Centrum Women 18-400 mg-mcg Tablet 1 tab PO QAM levothyroxine 175 mcg Tablet 175 mcg PO UD Rx Instructions: takes every other day sennosides [Senokot] 8.6 mg Tablet 8.6 mg PO BID PRN (Reason: Constipation) tizanidine 2 mg Tablet 2 mg PO QPM PRN (Reason: Muscle Spasm) trazodone 50 mg Tablet 50 mg PO HS lorazepam 0.5 mg Tablet 0.5 mg PO HS PRN (Reason: Anxiety) potassium chloride 2.5 mEq Tablet 10 meq PO BID PreserVision AREDS 2,148 mcg-113 mg-45 mg-17.4mg Tablet 2 tab PO BID Rx Instructions: administer with AM and PM meals Discontinued atenolol-chlorthalidone [Tenoretic 100] 100-25 mg Tablet 1 tab PO QAM Discharge Orders: Discharge Order (Routine); Ordered 07/16/22 Ordered By: Durga Shaw Admission Data Admit Date/Time: 07/14/22 13:55 Attending Provider: Victor Hugo Zaidi Admit Provider: Victor Hugo Zaidi Primary Care Provider: Lashon Leroy Other Providers: Andrea Kim ; [facility] ; Jalen Lopez ; [facility],Health Other Interventions: Discharge Summary Assessment (RN) Last Done: 07/16/22 15:48
== END 2022-07-16 16:26 | DRG 483 ==
LOC: ASU 08:08 → 3E 13:55
DX: M19.011 Primary osteoarthritis, right shoulder; M75.121 Complete rotator cuff tear or rupture of right shoulder, not specified as traumatic; E03.9 Hypothyroidism, unspecified; I45.2 Bifascicular block; I50.32 Chronic diastolic (congestive) heart failure; Z79.82 Long term (current) use of aspirin; E78.00 Pure hypercholesterolemia, unspecified; I11.0 Hypertensive heart disease with heart failure; Z88.2 Allergy status to sulfonamides; E87.6 Hypokalemia; Z79.890 Hormone replacement therapy

== ENCOUNTER 2023-04-05 06:49 | Observation (INO) ==
--- NOTE | 2023-03-02 14:09 | PAT Medication Instructions ---
Medication Instructions Date of Service March 02, 2023 Home Medications Medication Instructions Recorded acetaminophen 500 mg tablet 1,000 mg PO Q8 #60 tabs 07/16/22 (Tylenol Extra Strength) oxycodone 5 mg tablet 5 - 10 mg PO .Q4h-6h PRN pain #30 07/16/22 tabs aspirin 81 mg tablet 81 mg PO QPM felodipine 5 mg tablet,extended release 24 hr 5 mg PO QDD furosemide 20 mg tablet 20 mg PO QAM lorazepam 0.5 mg tablet 0.5 mg PO HS PRN Anxiety multivitamin-ferrous fumarate-folic acid 18 mg-400 mcg tablet (Centrum Women) 1 tab PO QAM potassium chloride 2.5 mEq tablet 10 meq PO BID sennosides 8.6 mg tablet (Senokot) 8.6 mg PO BID PRN Constipation tizanidine 2 mg tablet 2 mg PO HS trazodone 50 mg tablet 50 mg PO HS vitamins A,C,I-cnds-hntdkg 2,148 mcg-113 mg-45 mg-17.4 mg tablet (PreserVision AREDS) 2 tab PO BID acetaminophen 500 mg tablet (Tylenol Extra Strength) 1,000 mg PO Q8 oxycodone 5 mg tablet 5 - 10 mg PO .Q4h-6h PRN pain atenolol 100 mg tablet 100 mg PO QAM docusate sodium 100 mg capsule (Stool Softener) 100 mg PO BID levothyroxine 125 mcg tablet 125 mcg PO QAM STOP taking 2 weeks before surgery vitamins A,C,W-cbxe-qlozth 2,148 mcg-113 mg-45 mg-17.4 mg tablet (PreserVision AREDS) 2 tab PO BID DO NOT take the morning of surgery furosemide 20 mg tablet 20 mg PO QAM multivitamin-ferrous fumarate-folic acid 18 mg-400 mcg tablet (Centrum Women) 1 tab PO QAM potassium chloride 2.5 mEq tablet 10 meq PO BID sennosides 8.6 mg tablet (Senokot) 8.6 mg PO BID PRN Constipation docusate sodium 100 mg capsule (Stool Softener) 100 mg PO BID Take morning of surgery With a small sip of water, OTHERWISE NOTHING TO EAT OR DRINK AFTER MIDNIGHT: acetaminophen 500 mg tablet (Tylenol Extra Strength) 1,000 mg PO Q8 (if needed) oxycodone 5 mg tablet 5 - 10 mg PO .Q4h-6h PRN pain (if needed) atenolol 100 mg tablet 100 mg PO QAM levothyroxine 125 mcg tablet 125 mcg PO QAM Take evening before surgery aspirin 81 mg tablet 81 mg PO QPM (unless surgeon directed otherwise) felodipine 5 mg tablet,extended release 24 hr 5 mg PO QDD lorazepam 0.5 mg tablet 0.5 mg PO HS PRN Anxiety (if needed) potassium chloride 2.5 mEq tablet 10 meq PO BID sennosides 8.6 mg tablet (Senokot) 8.6 mg PO BID PRN Constipation (if needed) tizanidine 2 mg tablet 2 mg PO HS trazodone 50 mg tablet 50 mg PO HS acetaminophen 500 mg tablet (Tylenol Extra Strength) 1,000 mg PO Q8 (if needed) oxycodone 5 mg tablet 5 - 10 mg PO .Q4h-6h PRN pain (if needed) docusate sodium 100 mg capsule (Stool Softener) 100 mg PO BID Other Notes If you have any questions please call us at [phone] or [phone] or [phone] or [phone]
--- NOTE | 2023-03-10 08:30 | Anesthesiology Consultation ---
Date of Service March 10, 2023 Assessment & Plan (1) Encounter for pre-operative examination: - COVID screening: Per assessment on 03/10: No known COVID-19 positive contacts or current COVID-19 related symptoms. Travel screen negative. Patient vaccinated. At surgeon discretion if preop Covid testing being done. - Outpatient joint assessment: Pt currently scheduled for inpatient pathway. If surgeon requests review for outpatient joint pathway, patient is not recommended candidate for outpatient joint program from anesthesia standpoint. - S/P Right Reverse TSA (07/14/22): Grade 1 view, Glidescope #3, ETT 7.0 + PNB at [facility] - Cardiology note (02/28/23): "Pt recently seen in office. Stable. Acceptable cardiac risk for shoulder surgery" Chart Review Chart Review: Acceptable Risk for Surgery and Patient seen in Pre Admission Testing History Surgery Operation Date: 04/05/23 10:35 Proposed Procedures p Left Reverse Total Shoulder Arthroplasty - Victor Hugo Zaidi MD Height/Weight Height: 5 ft 4 in Weight: 89.5 kg Allergies Allergy/AdvReac Type Severity Reaction Status Date / Time Sulfa (Sulfonamide Allergy Mild Rash Verified 03/02/23 10:46 Antibiotics) sulfamethoxazole Allergy Mild Rash Verified 03/02/23 10:46 [From Bactrim] trimethoprim [From Bactrim] Allergy Mild Rash Verified 03/02/23 10:46 Medications Home Medications Medication Instructions Recorded Confirmed Last Taken aspirin 81 mg tablet 81 mg PO QPM 06/14/22 03/02/23 07/13/22 21:00 furosemide 20 mg tablet 20 mg PO QAM 06/14/22 03/02/23 07/13/22 08:00 lorazepam 0.5 mg tablet 0.5 mg PO HS PRN Anxiety 06/14/22 03/02/23 07/13/22 21:00 multivitamin-ferrous 1 tab PO QAM 06/14/22 03/02/23 07/02/22 08:00 fumarate-folic acid 18 mg-400 mcg tablet (Centrum Women) potassium chloride 2.5 mEq tablet 10 meq PO BID 06/14/22 03/02/23 07/13/22 21:00 sennosides 8.6 mg tablet (Senokot) 8.6 mg PO BID PRN Constipation 06/14/22 03/02/23 07/13/22 20:00 tizanidine 2 mg tablet 2 mg PO HS 06/14/22 03/02/23 07/13/22 21:00 trazodone 50 mg tablet 50 mg PO HS 06/14/22 03/02/23 07/13/22 21:00 vitamins A,C,S-kmew-hlnxfz 2,148 2 tab PO BID 06/14/22 03/02/23 07/02/22 08:00 mcg-113 mg-45 mg-17.4 mg tablet (PreserVision AREDS) acetaminophen 500 mg tablet 1,000 mg PO Q8 #60 tabs 07/16/22 03/02/23 Unknown (Tylenol Extra Strength) oxycodone 5 mg tablet 5 - 10 mg PO .Q4h-6h PRN pain #30 07/16/22 03/02/23 Unknown tabs atenolol 100 mg tablet 100 mg PO QAM 03/02/23 03/02/23 Unknown docusate sodium 100 mg capsule 100 mg PO BID 03/02/23 03/02/23 Unknown (Stool Softener) levothyroxine 125 mcg tablet 125 mcg PO QAM 03/02/23 03/02/23 Unknown valsartan 160 mg tablet 160 mg PO HS 03/10/23 03/10/23 Unknown Past Medical History Medical History Anxiety Bifascicular block Chronic Diastolic heart failure Follows with [place] [facility]/Clau Argueta PAC Hyperlipidemia no meds Hypertension Hypothyroidism Hx radiation therapy (1997) Obesity Poor historian Exercise / Class Metabolic Activity III < 4 Walking/Shop/Light housework (uses walker PRN) Past Family History Family History Other No family history of adverse response to anesthesia Past Surgical History Surgical History Hx of carpal tunnel repair Right Hx of cataract extraction R/L Hx of colonoscopy Hx of eye surgery Retinal procedure Hx of shoulder surgery Right Reverse TSA (07/14/22): Grade 1 view, Glidescope #3, ETT 7.0 + PNB at [facility] Hx of tonsillectomy Past Anesthesia History No Hx of Anesthesia Complications and No Family Hx of Anesthesia Complications History of PONV No Hx of PONV and No Hx of Motion Sickness Social History Smoking Status: Never smoker Do You Dip or Chew Tobacco: No Hx Alcohol Use: No Hx Substance Use: No substance use type: does not use Review of Systems Patient denies chest pain, shortness of breath, fever, chills, cough, wheezing, palpitations. Physical Exam Vital Signs VITALS BP 161/89 P 79 TEMP 98.1 SP02 98%RA RESP 16 PHYSICAL Decreased cervical extension range of motion. Full TMJ range of motion. TMD 3.5 finger breaths Mallampati Score 3 Dentition: intact, +crowns/caps Lungs: clear throughout to auscultation Cardiac: regular rate and rhythm, no murmurs noted Spine: normal Carotid arteries: negative bruit Extremities: no LE edema Lab Results Anesthesia Preop Results Results Anesthesia Widget: WBC 7.50 K/ul (4.8-10.8) 03/10/23 Hgb 13.8 g/dl (12.0-16.0) 03/10/23 Hct 40.1 % (37.0-47.0) 03/10/23 Plt 206 K/uL (130-400) 03/10/23 Na 140 mmol/L (136-145) 03/10/23 K 3.3 mmol/L (3.5-5.1) L 03/10/23 Cl 102 mmol/L (98-107) 03/10/23 CO2 28 mmol/L (21-32) 03/10/23 BUN 18 mg/dl (6-23) 03/10/23 Creat 0.50 mg/dl (0.6-1.2) L 03/10/23 Glucose Level 85 mg/dl (70-99(Fasting)) 03/10/23 PT 10.6 Seconds (9.0-12.0) 03/10/23 PTT 28.3 Seconds (21.0-31.0) 03/10/23 INR 1.0 (0.9-1.1) 03/10/23 Urine Color Yellow 03/10/23 Urine Appearance Clear (Clear) 03/10/23 Urine pH 5.5 (4.5-7.5) 03/10/23 Urine Specific [place] 1.006 (1.000-1.030) 03/10/23 Urine Protein Negative (Negative) 03/10/23 Urine Glucose (UA) Negative (Negative) 03/10/23 Urine Ketones Negative (Negative) 03/10/23 Urine Blood Negative (Negative) 03/10/23 Urine Nitrite Negative (Negative) 03/10/23 Urine Bilirubin Negative (Negative) 03/10/23 Urine Urobilinogen Negative (Negative) 03/10/23 Urine Leukocyte Esterase Negative (Negative) 03/10/23 Blood Type A Positive 03/10/23 Antibody Screen NEGATIVE 03/10/23 Testing Electrocardiogram Date: 06/17/22 NSR at 62bpm. RBBB. LAFB. *Bifascicular block* Bifascicular block noted on 04/29/22 EKG scanned in [employer]. Per that report- the EKG was compared to 08/17/21 EKG and does not report that bifascicular block is new (does mention septal infarct now present and NS TWA has replaced anterior lead TWI). Echo was done 08/17/21 and stress test done 02/17/22. Chest X-Ray Date: 06/17/22 FINDINGS: The lungs are clear. The cardiac silhouette is mildly enlarged. No pleural effusions. No pneumothorax. Advanced degenerative changes within the shoulders. IMPRESSION: Mild cardiomegaly. Otherwise, no acute process within the chest. Echocardiogram Date: 08/17/21 LVEF 55-60%. No regional motion abnormality. Indeterminate diastolic dysfunction. Mild LVH. Moderate mitral annular calcification. Mild MR. Mild aortic sclerosis without stenosis. Trivial AR. Proximal ascending aorta is mildly dilated at 3.87 cm. Trivial pericardial effusion localized near the left ventricle without tamponade physiology. Stress Test Date: 02/17/22 Type: nuclear Myocardial perfusion appears normal following pharmacologic stress with regadenoson. No reversible or fixed ischemia seen. Mild soft tissue attenuation is present. The ejection fractions are normal. COVID-19 Risk Screen Screening Information COVID-19 Screen Date: 03/10/23 Exposure 21 Days Family/Household +COVID Last 21 Days: No Exposure 10 Days Any COVID Exposure Last 10 Days: No Symptoms Last 10 Days Experienced COVID Sx Last 10 Days: No + COVID 0-90 Days COVID + in Last 0-90 Days: No
--- NOTE | 2023-04-04 12:31 | History & Physical Report ---
Date of Service April 04, 2023 Assessment & Plan (1) Primary osteoarthritis, left shoulder: Plan: Treatment options discussed with patient. She has end-stage osteoarthritis left shoulder. Has done well with previous right reverse shoulder replacement. She would like to proceed with surgical invention. Risks, benefits and alternatives to surgery including but not limited to infection, DVT, pain, stiffness, need for revision surgery, damage to blood vessels, damage to nerves, PE, , were discussed with the patient and they wish to proceed. Plan for left reverse total shoulder arthroplasty scheduled for April 05 at [facility] with Dr. Zaidi. All questions answered. Patient will follow postop. History of Present Illness Chief Complaint: Left shoulder pain Primary Care Provider: Kenneth Griffin M.D. 83-year-old female with past medical history significant for hypertension, high cholesterol, hypothyroidism, Diastolic heart failure who presents with ongoing left shoulder pain. Patient has pain interfering with her daily activities. She has failed conservative measures. She has previous right reverse shoulder replacement and has done well. She would like to proceed with surgical intervention. Patient denies headaches, sweats, fevers, chills, double vision, blurred vision, cough, sore throat, dysphagia, chest pain, sob, wheezing, n/v/d/c, numbness, tingling, fatigue, urinary symptoms, mood disorders. ROS positive for left shoulder pain and stiffness. Allergies Allergy/AdvReac Type Severity Reaction Status Date / Time Sulfa (Sulfonamide Allergy Mild Rash Verified 03/02/23 10:46 Antibiotics) sulfamethoxazole Allergy Mild Rash Verified 03/02/23 10:46 [From Bactrim] trimethoprim [From Bactrim] Allergy Mild Rash Verified 03/02/23 10:46 Home Medications Medication Instructions Recorded Confirmed Type aspirin 81 mg tablet 81 mg PO QPM 06/14/22 03/02/23 History furosemide 20 mg tablet 20 mg PO QAM 06/14/22 03/02/23 History lorazepam 0.5 mg tablet 0.5 mg PO HS PRN Anxiety 06/14/22 03/02/23 History multivitamin-ferrous 1 tab PO QAM 06/14/22 03/02/23 History fumarate-folic acid 18 mg-400 mcg tablet (Centrum Women) potassium chloride 2.5 mEq tablet 10 meq PO BID 06/14/22 03/02/23 History sennosides 8.6 mg tablet (Senokot) 8.6 mg PO BID PRN Constipation 06/14/22 03/02/23 History tizanidine 2 mg tablet 2 mg PO HS 06/14/22 03/02/23 History trazodone 50 mg tablet 50 mg PO HS 06/14/22 03/02/23 History vitamins A,C,V-mqqs-dnzdhp 2,148 2 tab PO BID 06/14/22 03/02/23 History mcg-113 mg-45 mg-17.4 mg tablet (PreserVision AREDS) acetaminophen 500 mg tablet 1,000 mg PO Q8 #60 tabs 07/16/22 03/02/23 Rx (Tylenol Extra Strength) oxycodone 5 mg tablet 5 - 10 mg PO .Q4h-6h PRN pain #30 07/16/22 03/02/23 Rx tabs atenolol 100 mg tablet 100 mg PO QAM 03/02/23 03/02/23 History docusate sodium 100 mg capsule 100 mg PO BID 03/02/23 03/02/23 History (Stool Softener) levothyroxine 125 mcg tablet 125 mcg PO QAM 03/02/23 03/02/23 History valsartan 160 mg tablet 160 mg PO HS 03/10/23 03/10/23 History Past Med/Surg History Medical History Anxiety Bifascicular block Chronic Diastolic heart failure Follows with [place] [facility]/Clau Argu[facility] PAC Hyperlipidemia no meds Hypertension Hypothyroidism Hx radiation therapy (1997) Obesity Poor historian Surgical History Hx of carpal tunnel repair Right Hx of cataract extraction R/L Hx of colonoscopy Hx of eye surgery Retinal procedure Hx of shoulder surgery Right Reverse TSA (07/14/22): Grade 1 view, Glidescope #3, ETT 7.0 + PNB at [facility] Hx of tonsillectomy Family History Other No family history of adverse response to anesthesia Social History Smoking Status: Never smoker Second Hand Exposure: No; Do You Dip or Chew Tobacco: No; Tobacco Cessation Education Requested by Patient: No Hx Alcohol Use: No Hx Substance Use: No Preferred Language: Maltese Communication Ability: Effective Loss Prevention Coordinator Required: No Beliefs That Will Affect Care: None marital status: Current Living Situation: Spouse Other Information That Helps Us Care for You: No Feels Safe at Home: Yes Safety Concerns: Feels Safe At This Time Assistive Devices: Glasses and Walker Review of Systems All systems reviewed & are unremarkable except as noted in HPI & below Physical Exam Constitutional: well developed and well nourished; no acute distress Eyes: PERRL, conjunctivae normal, anicteric sclerae ENMT: external ear and nose normal, oropharynx normal Neck: trachea midline, no thyromegaly Respiratory: normal respiratory effort, lungs clear to auscultation Cardiovascular: RRR, no murmur, no edema Musculoskeletal: Left shoulder: Crepitation with range of motion. Diffuse lateral arm tenderness and tenderness anterior glenoid. Positive impingement signs. Left glenohumeral joint is elxh-ou-tbyr crepitation. Range of motion: 45 degrees of active abduction, 45 degrees of forward flexion, 10 degrees of external rotation. Skin: no rashes, warm and dry Neurologic: patellar DTR's 2+ bilat, sensation intact Psychiatric: A+Ox3, euthymic affect Results & Data Diagnostic Findings Left shoulder radiographs demonstrate end-stage osteoarthritis, [id number] glenohumeral joint. There is some proximal migration of the humerus consistent with a possible rotator cuff pathology.
[2023-04-05] MEDS ORDERED: ONDANSETRON INJ 2 MG/ML 2 ML VIAL IV PRN ×2 (07:58→14:24)
[2023-04-05] MEDS ORDERED: ePHEDrine sulfate 50 MG/ML AMP IV PRN (07:58)
[2023-04-05] MEDS ORDERED: fentaNYL citrate PF 100 MCG/2 ML VIAL IV PRN (07:58)
[2023-04-05] MEDS ORDERED: ATROPINE SULFATE 0.1 MG/ML 10ML SYR IV PRN (07:58)
[2023-04-05] MEDS ORDERED: PROMETHAZINE HCL 6.25 MG in SODIUM CHLORIDE 0.9% 50 ML IV PRN (07:58)
[2023-04-05] MEDS ORDERED: fentaNYL citrate PF 100 MCG/2 ML VIAL ONE (09:21)
[2023-04-05] MEDS ORDERED: LIDOCAINE 2% 2 ML VIAL/AMP(20MG/ML) INFIL ONE (09:22)
[2023-04-05] MEDS ORDERED: ROCURONIUM BROMIDE 10 MG/ML 5 ML VIAL IV ONE ×6 (09:22→11:43)
[2023-04-05] MEDS ORDERED: PROPOFOL IV EMULSION 10 MG/ML 20 ML VIAL IV ONE (09:22)
[2023-04-05] MEDS ORDERED: MIDAZOLAM HCL 1 MG/ML 2ML VIAL ONE (09:55)
--- NOTE | 2023-04-05 10:04 | History & Physical Bridge Note ---
Date of Service April 05, 2023 History & Physical Bridge Note I have examined the patient, reviewed the History & Physical and in the interval since the performance of the History & Physical I have noted the following changes of clinical significance: no changes noted
[2023-04-05] MEDS ORDERED: DEXAMETHASONE SOD INJ 4 MG/ML VIAL ONE (11:45)
[2023-04-05] MEDS ORDERED: ONDANSETRON INJ 2 MG/ML 2 ML VIAL ONE (11:45)
[2023-04-05] MEDS ORDERED: LABETALOL HCL IV 5 MG/ML 20ML IV ONE (11:45)
[2023-04-05] MEDS ORDERED: PHENYLEPHRINE 100MCG/ML 5ML SYR ONE (12:05)
[2023-04-05] MEDS ORDERED: SUGAMMADEX SODIUM 200 MG/2 ML VIAL IV ONE (12:21)
--- NOTE | 2023-04-05 13:15 | Operative Report ---
Post Operative Report Pre & Post Diagnosis Operation Date: 04/05/23 09:30 Pre-Op Diagnosis: Left shoulder primary osteoarthritis glenohumeral joint, rotator cuff tendinopathy Post-Op Diagnosis: Left shoulder primary osteoarthritis glenohumeral joint, rotator cuff tendi nopathy with full-thickness rotator cuff tear, chronic biceps tenosynovitis, loose bodies glenohumeral joint. I identified the patient and participated in the time-out.: Yes Procedure Operation Date: 04/05/23 09:30 Actual Procedures p Left Reverse Total Shoulder Arthroplasty(Left), biceps tenodesis, removal loose bodies- Victor Hugo Zaidi MD Surgeon Victor Hugo Zaidi MD It Technical Specialist Durga SCHULZ Estimated Blood Loss 100 Findings Consistent with Post-Op Diagnosis Specimens Bone cut humeral head Drains 2 Hemovac Anesthesia Type General Regional Complications none Disposition Disposition: Recovery Room Indications 83-year-old female with chronic left shoulder pain weakness and stiffness with x-rays demonstrating [id number] glenohumeral osteoarthritis with concentric type a wear pattern. Patient had successful reverse shoulder placement on her opposite shoulder. Description of Procedure The patient was taken to the operating room and anesthetized under regional block and general anesthetic. The patient was positioned on the operating table in a 30 beach chair position with a towel roll under the medial border of the left scapula. The arm was draped free to be able to manipulate the shoulder as needed. The left upper extremity was prepped and draped in usual sterile fashion. Exam demonstrated 90 degrees forward flexion 80 degrees abduction 10 degrees external rotation. An anterior deltopectoral approach was performed. A longitudinal incision was made in the deltopectoral interval. The skin was incised sharply. Subcutaneous flaps were elevated off the fascia. There was a smaller than typical cephalic vein with some larger crossing veins. These crossing veins were tied off with silk ties and divided the cephalic vein was dissected out and retracted lateral with the deltoid. Later during the case during exposure some tearing of the cephalic vein required tying this off with silk ties as well. The clavipectoral fascia was divided at the lateral margin of the conjoined tendon and extended up to the CA ligament. The following findings were noted: There is a large bursal fluid collection coming from the subacromial space overlapping the upper subscapularis. The subscapularis tendon was intact. There was a large fluid collection around the biceps tendon with chronic biceps tenosynovitis but intact biceps tendon. The supraspinatus tendon had several vertical longitudinal full- thickness tears within the tendon and there was tendinopathy fraying and thinning.. The upper centimeter of the pectoralis was released for inferior exposure. A self-retaining retractor was placed. The biceps tendon was tenodesed to the pectoralis tendon with #2 FiberWire. The proximal biceps was resected. The large bursal collection over the rotator cuff was excised and the supraspinatus tendon tissue was excised leaving the infraspinatus tendon intact. The subscapularis muscle fibers were split longitudinally at the level of the circumflex vessels. The circumflex vessels were identified and tied off with silk ties and divided laterally. A Kitner elevator was used to free up the inferior fibers of the subscapularis off of the capsule. The axillary nerve was identified with a tug test and protected with a blunt Nestor retractor between the nerve and the capsule. The subscapularis tendon was then taken down off of the lesser tuberosity subperiosteally, a Vicryl traction suture was placed and a subperiosteal dissection was performed along the neck of the humerus as the arm was gradually externally rotated exposing the humeral head. The humeral head findings demonstrated eburnated bone flattening of the humeral head due to bone wear and large osteophytes circumferentially.. retractors were readjusted and the inferior osteophytes were all resected using an artist chisel. A Pinon elevator was used to assist in releasing the capsule of the neck of the humerus. The capsule was divided with De La Vega scissors down to the glenoid released off the anterior glenoid and the rotator interval was released to meet the capsular release and a 360 release of the subscapularis was accomplished. A Fukuda retractor was placed into the joint retracting the humeral head posterior. Glenoid findings demonstrated type a wear concentric wear with some bone loss centrally. There was a large calcified anterior and inferior labrum. There were multiple loose bodies that were resected and removed from within the joint. . The labrum and biceps tendon were resected. an anterior-inferior and posterior inferior capsular release were performed with electrocautery and a Pinon elevator on bone with the axillary nerve protected inferiorly by the retractor. Attention was then taken to the humeral preparation. The cutting guide was placed into the humeral head. It was positioned at 20 of retroversion. Oscillating saw was used to resect the humeral head giving the cut above the level of the posterior rotator cuff insertion site. The humerus was then prepared for the stem. I used the ascend flex stem from [facility]. The sizing broaches were used followed by trial broaches up to a size 4B long which had the appropriate fit and fill. The appropriate sized cut protector was placed. The humerus was then retracted posterior to the glenoid. The glenoid was sized for a 25 mm baseplate. The guide for the baseplate was positioned in a 10 inferior tilt and the central drill hole was made. The reamer for the 25 baseplate was used. The central drill was widened for the peg. The baseplate was impacted into position. The aequalis 25 mm hydroxyapatite coated standard post base plate was transfixed with superior and inferior locking screws and anterior and posterior compression screws with stable fixation. The fan reamer was used for the 36 millimeter centered glenoid sphere. After irrigation the aequalis 36 mm centered glenoid sphere was impacted onto the baseplate and the security screw was tightened. Attention was taken back to the humerus. The cut protector was removed and the +0 high offset humeral tray trial was assembled to the trial stem rotated appropriately to get bony coverage and then screwed in position. A trial reduction was performed. A +6, 36 reversed trial insert demonstrated good stability and no shuck. The trials were removed. 3 drill holes are made into the harder bone in the bicipital groove area and 3 #5 FiberWire sutures were placed transosseously. The canal was irrigated with pulsed saline solution. The final component was assembled. The final component was +6, 36 mm reversed polyethylene insert assembled to the posterior high offset tray and a 4B long ascend flex PTC stem. This was then impacted into the humerus with a tight press-fit. It was reduced to the glenoid sphere. Stability was verified. Subscapularis was repaired with the #5 FiberWire sutures using Curry-Tadeo suture technique. Lateral row soft tissue repair was performed with #2 FiberWire with a Curry-Tadeo suture tape technique placed transosseous. The pectoralis was repaired with #2 FiberWire [id number] sutures reinforcing the biceps tendon tenodesis. The arm was taken through a range of motion which demonstrated 100 degrees flexion 90 degrees abduction and 45 degrees external rotation without any tension on repair. The implant was stable through the range of motion tested. The wound was copiously irrigated. 2 Hemovac drains were placed. The deltopectoral interval was closed with [id number] #1 Vicryl sutures. The subcutaneous tissues were closed with 2- 0 Vicryl sutures. The skin was closed with segun. Sterile dressings were applied and a shoulder immobilizer. Durga SCHULZ, [facility] clinic assistant acted as assistant professor surgical technology throughout the procedure .He performed functions including patient positioning, arm positioning, prepping and draping, soft tissue retraction, instrument management, suture management and performed the subcutaneous and skin closure and will participate in the postoperative care of the patient. I attest to the content of the Intraoperative Record and any orders documented therein. Any exceptions are noted below.
--- NOTE | 2023-04-05 13:32 | XRay Report ---
XR shoulder LT min 2V routine CLINICAL HISTORY: Post shoulder surgery TECHNIQUE: 3 views of the left shoulder were obtained. Comparison: None available at the time of this dictation. FINDINGS: Patient is status post shoulder arthroplasty with expected postsurgical changes including soft tissue swelling and subcutaneous emphysema. No periarticular lucency or hardware fracture is seen. Blunting of the left costophrenic angle is seen which may represent scarring versus small effusion. IMPRESSION: 1. Expected postoperative appearance status post placement of shoulder arthroplasty. 2. Possible small left pleural effusion. ACT 112: Negative or not required by law. Electronically signed by: Karan Burns M.D. 04/05/2023 1:30 PM
[2023-04-05] MEDS ORDERED: NALOXONE HCL 0.4 MG/1 ML VIAL/CARP IV PRN (14:24)
[2023-04-05] MEDS ORDERED: bisacodyL 10 MG SUPP PR PRN (14:24)
[2023-04-05] MEDS ORDERED: HYDROmorphone INJ 0.5 MG/0.5 ML SYR IV PRN (14:24)
[2023-04-05] MEDS ORDERED: MAGNESIUM HYDROXIDE SUSP 30 ML UDC PO PRN (14:24)
[2023-04-05] MEDS ORDERED: LORazepam 0.5 MG TAB PO PRN (14:24)
--- NOTE | 2023-04-05 14:58 | Anesthesiology Progress Note ---
Date of Service April 05, 2023 Anesthesia Post Procedure Vital Signs Vital Signs: Temp Pulse Pulse Resp BP Pulse Ox O2 Del Method 04/05/23 14:15 84 19 147/72 H 95 Nasal Cannula 04/05/23 14:00 84 17 140/76 95 Nasal Cannula 04/05/23 13:45 87 17 129/93 94 Nasal Cannula 04/05/23 13:35 36.5 C 86 22 136/85 93 Nasal Cannula 04/05/23 13:25 71 14 150/78 H 92 Nasal Cannula 04/05/23 13:15 81 20 143/85 H 92 Nasal Cannula 04/05/23 13:06 36.4 C L 83 13 152/81 H 92 Nasal Cannula 04/05/23 07:16 36.6 C 77 18 186/99 H 94 Room Air O2 Flow Rate 04/05/23 14:15 2 04/05/23 14:00 2 04/05/23 13:45 2 04/05/23 13:35 2 04/05/23 13:25 2 04/05/23 13:15 4 04/05/23 13:06 4 04/05/23 07:16 Transfer of Care Handoff Completed per policy Notes Mental Status: alert / awake / arousable Patient Amnestic to Procedure: Yes Nausea / Vomiting: adequately controlled Pain: adequately controlled Airway Patency, RR, SpO2: stable & adequate BP & HR: stable & adequate Hydration State: stable & adequate Anesthetic Complications: no major complications apparent
--- NOTE | 2023-04-05 15:05 | Hospitalist Consultation ---
Date of Consultation April 05, 2023 Assessment & Plan (1) Primary osteoarthritis, left shoulder: POD # 0 Left shoulder primary osteoarthritis glenohumeral joint, rotator cuff tendinopathy with full-thickness rotator cuff tear, chronic biceps tenosynovitis, loose bodies glenohumeral joint by Dr. Zaidi. - Pain control tiered with rescue Narcan Avaliable- per primary team - Bowel Regitine in place per primary team - abx per primary team - Drains and Dressing per primary team - Diet per primary team - PT/OT per primary team - VTE prophylaxis per primary team - Consider discontinuation of Tizanidine following surgical corrections (2) Diastolic heart failure: Chronic and Stable - BMP is with preserved renal function and patient appears Euvolemic- continue with ARB - Continue with Lasix follow potassium - Follow daily BMP (3) Hypertension: Chronic and controlled - Continue with Atenolol (4) Anxiety: Continue with Trazodone and Ativan- from home - follow for oversedation (5) Hypothyroidism: Continue with levothyroxine Supervising Physician Co-Signing Physician Notes Patient seen and examined, chart reviewed, case discussed with QUOC Yip and I agree with the assessment and plan as above except as otherwise noted Labs and images reviewed Kerry has a history of heart failure preserved ejection fraction, hypertension, hyperlipidemia, OA, hypothyroidism and is admitted to the hospital for left total shoulder arthroplasty. She is s/p shoulder arthroplasty 04/05/2023 and is seen for postop medication management. Estimated 100 cc blood loss. Preop clearance was performed at [facility], full H&P not available from the note. Per prior record review has a history of diastolic heart failure with EF of 55 to 60% and mild LVH/MR. Hypertension well controlled with atenolol/valsartan. Previously on felodipine/chlorthalidone; no longer taking. Hypothyroidism stable on Synthroid. Has had diuretic induced hypokalemia in the past. K stable today. Postoperatively slightly tachycardic at 106, normotensive. Endorses some feeling like her fingers are asleep, but this is diminishing with time and does have intact sensation to soft touch in all 5 fingers and through the left arm. 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 Lungs clear to auscultation bilaterally. No hypoxia, is using her incentive spirometer postop creatinine 0.60. BSG 135. Doing well. May resume valsartan. Trend labs daily. Has a history of some postop bleeding with prior shoulder, as she is currently normotensive will defer aggressive fluids and treat with boluses as needed while trending CBC continue atenolol, do not hold due to risk of beta-marely withdrawal. DVT prophylaxis, activity, pain control per primary team. History of Present Illness Reason for Consultation: Medical Management postoperative Requesting Physician: Victor Hugo Zaidi MD Attending Physician: Victor Hugo Zaidi MD History of Present Illness 83 YOF with medical problems of: HFpEF HTN, HLD, Hypothyroidism, Osteoarthritis. She previously had her right shoulder done in July 2022. She is POD #0 from a Left Reverse Total Shoulder Arthroplasty(Left), biceps tenodesis, removal loose bodies. Patient was intubated under General Anesthesia during the case. EBL 100ml with 800 ml of crystalloid infused during the case. Required some NEOsynephrine as well as Labetalol during the case. Patient was evaluated in her room on the [facility]. She was awake, on room air, pain controlled, and without nausea or vomiting. She was with left shoulder in sling and ice applied to shoulder. Will check BMP postoperatively as she had hypokalemia on previous admissions. CODE FULL Allergies Allergy/AdvReac Type Severity Reaction Status Date / Time Sulfa (Sulfonamide Allergy Mild Rash Verified 04/05/23 07:17 Antibiotics) sulfamethoxazole Allergy Mild Rash Verified 04/05/23 07:17 [From Bactrim] trimethoprim [From Bactrim] Allergy Mild Rash Verified 04/05/23 07:17 Home Medications Medication Instructions Recorded Confirmed Type aspirin 81 mg tablet 81 mg PO QPM 06/14/22 04/05/23 History furosemide 20 mg tablet (Lasix) 20 mg PO QAM 06/14/22 04/05/23 History lorazepam 0.5 mg tablet 0.5 mg PO HS PRN Anxiety 06/14/22 04/05/23 History multivitamin-ferrous 1 tab PO QAM 06/14/22 04/05/23 History fumarate-folic acid 18 mg-400 mcg tablet (Centrum Women) potassium chloride 2.5 mEq tablet 10 meq PO BID 06/14/22 04/05/23 History sennosides 8.6 mg tablet (Senokot) 8.6 mg PO BID PRN Constipation 06/14/22 04/05/23 History tizanidine 2 mg tablet 2 mg PO HS 06/14/22 04/05/23 History trazodone 50 mg tablet 50 mg PO HS 06/14/22 04/05/23 History vitamins A,C,M-uujx-atlydv 2,148 2 tab PO BID 06/14/22 04/05/23 History mcg-113 mg-45 mg-17.4 mg tablet (PreserVision AREDS) acetaminophen 500 mg tablet 1,000 mg PO Q8 #60 tabs 07/16/22 04/05/23 Rx (Tylenol Extra Strength) oxycodone 5 mg tablet 5 - 10 mg PO .Q4h-6h PRN pain #30 07/16/22 04/05/23 Rx tabs atenolol 100 mg tablet 100 mg PO QAM 03/02/23 04/05/23 History docusate sodium 100 mg capsule 100 mg PO BID 03/02/23 04/05/23 History (Stool Softener) levothyroxine 125 mcg tablet 125 mcg PO QAM 03/02/23 04/05/23 History valsartan 160 mg tablet 320 mg PO HS 03/10/23 04/05/23 History Patient History Medical History Anxiety Bifascicular block Chronic Diastolic heart failure Follows with [facility]/Clau Argueta PAC Hyperlipidemia no meds Hypertension Hypothyroidism Hx radiation therapy (1997) Obesity Poor historian Surgical History Hx of carpal tunnel repair Right Hx of cataract extraction R/L Hx of colonoscopy Hx of eye surgery Retinal procedure Hx of shoulder surgery Right Reverse TSA (07/14/22): Grade 1 view, Glidescope #3, ETT 7.0 + PNB at [facility] Hx of tonsillectomy Family History Other No family history of adverse response to anesthesia Social History Smoking Status: Never smoker Second Hand Exposure: No; Do You Dip or Chew Tobacco: No; Tobacco Cessation Education Requested by Patient: No Hx Alcohol Use: No Hx Substance Use: No Preferred Language: Japanese Communication Ability: Effective 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 Beliefs That Will Affect Care: None marital status: Current Living Situation: Spouse Other Information That Helps Us Care for You: No Feels Safe at Home: Yes Safety Concerns: Feels Safe At This Time Assistive Devices: Walker Review of Systems Review of Systems: REVIEW OF SYSTEMS: Constitutional: No fever, sweats or chills Eyes: No diplopia, no worsening or blurred vision ENT: normal hearing, no trouble swallowing Respiratory: No cough, sputum, dyspnea at rest or on exertion Cardiovascular: No chest pain, tightness or palpitations Abdomen: No pain, nausea, vomiting, diarrhea or constipation Musculoskeletal: (+) shoulder joint pain, NO calf pain, swelling Neurologic: (+) walks with walker, No weakness, numbness/tingling, or balance problems Psychiatric: No anxiety or depression Skin: No rash or itch Physical Exam Physical Exam: PHYSICAL EXAM: General: awake, alert, no apparent distress Head: Normocephalic, atraumatic ENT: PERRLA, EOMI, no pharyngeal exudate, mucous membranes moist Neuro: AAO x 3, speech clear and appropriate, strength intact bilaterally 5/5, no pronator drift Chest: equal rise and fall of the chest, no accessory muscle use, no heaves or thrills, Clear to auscultation, on room air, ICS is at bedside Cardiac: Regular rate and rhythm, S1S2, skin warm dry, cap refill <3 seconds, peripheral pulses +2 no JVD, no murmur, no edema GI: NABS x 4 quadrants, soft, nontender to palpation, no rebound, guarding or tenderness : Spontaneously voiding, no pain, no CVA tenderness, MSK: Left shoulder with tape over surgical site and local block effective, has returning sensation to hand and forearm, good movement of fingers and 2+ radial puls, Hemovac drain to suction with small amount of serous sang drainage. Skin: no rash or erythema Results & Data Results & Data Vital Signs (Past 12 Hours) Vital Signs Temp Pulse Pulse Resp BP Pulse Ox O2 Del Method 04/05/23 14:15 84 19 147/72 H 95 Nasal Cannula 04/05/23 14:00 84 17 140/76 95 Nasal Cannula 04/05/23 13:45 87 17 129/93 94 Nasal Cannula 04/05/23 13:35 36.5 C 86 22 136/85 93 Nasal Cannula 04/05/23 13:25 71 14 150/78 H 92 Nasal Cannula 04/05/23 13:15 81 20 143/85 H 92 Nasal Cannula 04/05/23 13:06 36.4 C L 83 13 152/81 H 92 Nasal Cannula 04/05/23 07:16 36.6 C 77 18 186/99 H 94 Room Air O2 Flow Rate 04/05/23 14:15 2 04/05/23 14:00 2 04/05/23 13:45 2 04/05/23 13:35 2 04/05/23 13:25 2 04/05/23 13:15 4 04/05/23 13:06 4 04/05/23 07:16 Laboratory Results Abnormal lab results 04/05/23 Range/Units 15:10 Anion Gap 12 H (3-11) BUN/Creatinine Ratio 30.0 H (10-20) Glucose 135 H (70-99(Fasting)) mg/dl Diagnostic Findings Shoulder X-Ray 04/05/23 11:58 XR shoulder LT min 2V routine CLINICAL HISTORY: Post shoulder surgery TECHNIQUE: 3 views of the left shoulder were obtained. Comparison: None available at the time of this dictation. FINDINGS: Patient is status post shoulder arthroplasty with expected postsurgical changes including soft tissue swelling and subcutaneous emphysema. No periarticular lucency or hardware fracture is seen. Blunting of the left costophrenic angle is seen which may represent scarring versus small effusion. IMPRESSION: 1. Expected postoperative appearance status post placement of shoulder arthroplasty. 2. Possible small left pleural effusion. ACT 112: Negative or not required by law. Electronically signed by: Karan Burns M.D. 04/05/2023 1:30 PM Medications Administered Home Medications aspirin 81 mg tablet 81 mg PO QPM 06/14/22 [History Confirmed 04/05/23] furosemide 20 mg tablet (Lasix) 20 mg PO QAM 06/14/22 [History Confirmed 04/05/23] lorazepam 0.5 mg tablet 0.5 mg PO HS PRN Anxiety 06/14/22 [History Confirmed 04/05/23] multivitamin-ferrous fumarate-folic acid 18 mg-400 mcg tablet (Centrum Women) 1 tab PO QAM 06/14/22 [History Confirmed 04/05/23] potassium chloride 2.5 mEq tablet 10 meq PO BID 06/14/22 [History Confirmed 04/05/23] sennosides 8.6 mg tablet (Senokot) 8.6 mg PO BID PRN Constipation 06/14/22 [History Confirmed 04/05/23] tizanidine 2 mg tablet 2 mg PO HS 06/14/22 [History Confirmed 04/05/23] trazodone 50 mg tablet 50 mg PO HS 06/14/22 [History Confirmed 04/05/23] vitamins A,C,B-hvnq-hkvgez 2,148 mcg-113 mg-45 mg-17.4 mg tablet (PreserVision AREDS) 2 tab PO BID 06/14/22 [History Confirmed 04/05/23] acetaminophen 500 mg tablet (Tylenol Extra Strength) 1,000 mg PO Q8 #60 tabs 07/16/22 [Rx Confirmed 04/05/23] oxycodone 5 mg tablet 5 - 10 mg PO .Q4h-6h PRN pain #30 tabs 07/16/22 [Rx Confirmed 04/05/23] atenolol 100 mg tablet 100 mg PO QAM 03/02/23 [History Confirmed 04/05/23] docusate sodium 100 mg capsule (Stool Softener) 100 mg PO BID 03/02/23 [History Confirmed 04/05/23] levothyroxine 125 mcg tablet 125 mcg PO QAM 03/02/23 [History Confirmed 04/05/23] valsartan 160 mg tablet 320 mg PO HS 03/10/23 [History Confirmed 04/05/23] Active Medications Acetaminophen (Acetaminophen 500 Mg Tab) 1,000 mg PO Q8 SHANIQUA Stop: 05/05/23 15:14 Last Admin: 04/05/23 15:18 Dose: 1,000 mg Aspirin (Aspirin 81 Mg Ectab) 81 mg PO BID SHANIQUA Stop: 05/05/23 20:59 Atenolol (Atenolol 50 Mg Tablet) 100 mg PO QAM SHANIQUA Stop: 05/06/23 08:59 Bisacodyl (Bisacodyl 10 Mg Supp) 10 mg NH DAILY PRN PRN Reason: Constipation Stop: 05/05/23 14:23 Docusate Sodium (Docusate Sodium 100 Mg Cap) 100 mg PO BID SHANIQUA Stop: 05/05/23 20:59 Furosemide (Furosemide 20 Mg Tab) 20 mg PO QAM [facility] Stop: 05/06/23 08:59 Hydromorphone HCl (Hydromorphone Inj 0.5 Mg/0.5 Ml Syr) 0.5 mg IV Q4H PRN PRN Reason: Pain or Pre PT Stop: 04/19/23 14:23 Sodium Chloride (Nss 1000ml) 1,000 mls @ 100 mls/hr IV .Q10H [facility] Stop: 04/06/23 06:00 Last Admin: 04/05/23 15:10 Dose: 100 mls/hr Cefazolin Sodium (Ancef 2000mg) 2,000 mg in 15 mls @ 3.75 mls/min IV Q8H [facility]; Protocol Stop: 04/06/23 02:03 Last Admin: 04/05/23 17:35 Dose: 3.75 mls/min Levothyroxine Sodium (Levothyroxine Sodium 125 Mcg Tablet) [facility]: 05/06/23 06:29 Lorazepam (Lorazepam 0.5 Mg Tab) 0.5 mg PO HS PRN PRN Reason: Anxiety Stop: 05/05/23 14:23 Magnesium Hydroxide (Magnesium Hydroxide Susp 30 Ml Udc) 30 ml PO Q6H PRN PRN Reason: Constipation Stop: 05/05/23 14:23 Multivitamins ([facility]ivitamin Tab) [facility] [place]: 05/06/23 08:59 Multivitamins/Minerals (Cerovite Adv Formula Tab) 2 tab PO BIDM [facility] Stop: 05/05/23 16:59 Last Admin: 04/05/23 15:18 Dose: 2 tab Naloxone HCl (Naloxone Hcl 0.4 Mg/1 Ml Vial/Carp) 0.1 mg IV Q5M PRN PRN Reason: Oversedation/Resp Depression Stop: 05/05/23 14:23 Ondansetron HCl (Ondansetron Inj 2 Mg/Ml 2 Ml Vial) 4 mg IV Q6H PRN PRN Reason: Nausea And Vomiting Stop: 05/05/23 14:23 Oxycodone HCl (Oxycodone Hcl Ir 5 Mg Tab (Immediate Release)) 5 - 10 mg PO Q4H PRN PRN Reason: Pain or Pre PT Stop: 04/19/23 14:23 Potassium Chloride (Potassium Chloride 10 Meq Tabcr) 10 meq PO BID SHANIQUA Stop: 05/05/23 20:59 Sennosides (Senna 8.6 Mg Tab) 17.2 mg PO HS SHANIQUA Stop: 05/05/23 20:59 Tizanidine HCl (Tizanidine Hcl 4 Mg Tablet) 2 mg PO HS SHANIQUA Stop: 05/05/23 20:59 Trazodone HCl (Trazodone Hcl 50 Mg Tab) 50 mg PO HS SHANIQUA Stop: 05/05/23 20:59 Valsartan (Valsartan 80 Mg Tab) 320 mg PO HS [facility] Stop: 05/05/23 20:59 PG Care Time/CCT Total # of Minutes Spent Total Time Spent with Patient: Total time spent is greater than 50% in coordination of care (as documented) at patient's floor/unit and/or counseling patient: Coding Level of Care Code 85017 IN/OBS CONSULT LVL 3,45M Diagnoses Primary osteoarthritis, left shoulder M19.012 Diastolic heart failure I50.30 Hypertension I10 Anxiety F41.9 Hypothyroidism E03.9
[2023-04-05] MEDS: SODIUM CHLORIDE 0.9% 1000ML 1,000 ML IV SCH (15:10)
[2023-04-05] MEDS: ACETAMINOPHEN 500 MG TAB PO SCH ×2 (15:18→21:01)
[2023-04-05] MEDS: CEROVITE ADV FORMULA TAB PO SCH (15:18)
[2023-04-05 15:51] LABS: Calcium 9.3 mg/dl (8.6-10.3); Creatinine Clr Calc Pharmacy 76.4 ml/min; Est GFR (Non-African American) 83.7 ml/min; Potassium 3.7 mmol/L (3.5-5.1)
[2023-04-05] MEDS: ceFAZolin 2000MG 2,000 MG/15 ML SYR IV SCH (17:35)
[2023-04-05] MEDS: POTASSIUM CHLORIDE 10 MEQ TABCR PO SCH (20:59)
[2023-04-05] MEDS ORDERED: SENNA 8.6 MG TAB PO SCH (21:00)
[2023-04-05] MEDS ORDERED: VALSARTAN 80 MG TAB PO SCH (21:00)
[2023-04-05] MEDS: ASPIRIN 81 MG ECTAB PO SCH (21:00)
[2023-04-05] MEDS: DOCUSATE SODIUM 100 MG CAP PO SCH (21:00)
[2023-04-05] MEDS ORDERED: traZODone HCL 50 MG TAB PO SCH (21:00)
[2023-04-05] MEDS ORDERED: DOCUSATE SODIUM 100 MG CAP PO SCH (21:00)
[2023-04-05] MEDS ORDERED: tiZANidine HCL 4 MG TABLET PO SCH (21:00)
[2023-04-06] MEDS: ceFAZolin 2000MG 2,000 MG/15 ML SYR IV SCH (01:10)
[2023-04-06] MEDS: SODIUM CHLORIDE 0.9% 1000ML 1,000 ML IV SCH (01:10)
[2023-04-06] MEDS: ACETAMINOPHEN 500 MG TAB PO SCH (05:55)
[2023-04-06] MEDS: oxyCODONE HCL IR 5 MG TAB (IMMEDIATE RELEASE) PO PRN ×2 (06:12→10:31)
[2023-04-06] MEDS ORDERED: LEVOTHYROXINE SODIUM 125 MCG TABLET PO SCH (06:30)
[2023-04-06 06:52] LABS: Basophils # (auto) 0.03 K/uL (0-0.2); Basophils % (auto) 0.3 %; Hematocrit (blood only) 34.9 % (37.0-47.0); Hemoglobin 11.6 g/dl (12.0-16.0); Immature Granulocytes # (auto) 0.05 K/uL (0.01-0.20); Immature Granulocytes % (auto) 0.5 %; Lymphocytes # (auto) 2.34 K/uL (1.2-3.4); Lymphocytes % (auto) 22.3 %; Mean Corpuscular Hemoglobin 31.2 pg (25.0-34.0); Mean Corpuscular Hgb Conc 33.2 g/dL (32.0-36.0); Mean Corpuscular Volume 93.8 fL (80.0-100.0); Monocytes # (auto) 1.14 K/uL (0.11-0.59); Monocytes % (auto) 10.9 %; Neutrophils # (auto) 6.92 K/uL (1.40-6.50); Platelet Count 192 K/uL (130-400); RDW Coefficient of Variation 13.8 % (11.5-14.5); RDW Standard Deviation 47.3 fL (36.4-46.3); Red Blood Count 3.72 M/uL (4.20-5.40); White Blood Count 10.48 K/ul (4.8-10.8)
[2023-04-06 07:18] LABS: BUN Creatinine Ratio 33.3 (10-20); Calcium 8.6 mg/dl (8.6-10.3); Creatinine Clr Calc Pharmacy 66.4 ml/min; Est GFR (African American) 92.6 ml/min; Est GFR (Non-African American) 79.9 ml/min; Potassium 3.8 mmol/L (3.5-5.1)
--- NOTE | 2023-04-06 08:08 | Orthopedic Progress Note ---
Date of Service April 06, 2023 Assessment & Plan (1) Primary osteoarthritis, left shoulder: Plan: Postop day #1 left reverse total shoulder arthroplasty -Pain management as written -PT/OT: No shoulder range of motion. May do elbow/wrist/hand motion, shrugs, pendulums -DVT prophylaxis: SCDs, aspirin 81 mg daily -AM labs: Hemoglobin 11.6 from 13.8 preop. Acute blood loss anemia due to surgical loss versus dilutional. -Discharge planning: Plan on discharge home later today. Admission and Anticipated Discharge Date Admission Date: April 05, 2023 Subjective Patient is postop day 1 left reverse total shoulder arthroplasty. She is doing well this morning. Sitting in bedside chair eating breakfast. No current complaints. Denies chest pain, shortness of breath, nausea/vomiting/diarrhea, headaches or dizziness. Review of Systems Review of Systems: All systems reviewed & are unremarkable except as noted in Subjective Physical Exam Physical Exam: Left shoulder: Dressing is clean, dry, intact. Sling in place. Fingers are mobile. Patient able to extend wrist extend her thumb. Still some numbness likely residual from nerve block. Distally neurovascular status and sensation is grossly intact. Constitutional: WD/WN, vitals as above Results & Data Vital Signs (Past 12 Hours) Vital Signs Temp Pulse Resp BP Pulse Ox O2 Del Method 04/06/23 05:53 37.0 C 87 125/73 92 Room Air 04/06/23 03:01 36.7 C 92 H 17 112/71 95 Room Air 04/05/23 20:57 36.6 C 100 H 16 151/87 H 98 Room Air Laboratory Results Lab Results 04/05/23 04/05/23 04/06/23 Range/Units 15:10 Unknown 06:14 WBC 10.48 (4.8-10.8) K/ul RBC 3.72 L (4.20-5.40) M/uL Hgb 11.6 L (12.0-16.0) g/dl Hct 34.9 L (37.0-47.0) % MCV 93.8 (80.0-100.0) fL MCH 31.2 (25.0-34.0) pg MCHC 33.2 (32.0-36.0) g/dL RDW Std Deviation 47.3 H (36.4-46.3) fL RDW Coeff of Albino 13.8 (11.5-14.5) % Plt Count 192 (130-400) K/uL MPV 11.0 (9.4-12.4) fL Immature Gran % (Auto) 0.5 % Neut % (Auto) 66.0 % Lymph % (Auto) 22.3 % [place] % (Auto) 10.9 % Eos % (Auto) 0.0 % Baso % (Auto) 0.3 % Neut # (Auto) 6.92 H (1.40-6.50) K/uL Lymph # (Auto) 2.34 (1.2-3.4) K/uL [place] # (Auto) 1.14 H (0.11-0.59) K/uL Eos # (Auto) 0.00 (0-0.50) K/uL Baso # (Auto) 0.03 (0-0.2) K/uL Immature Gran # (Auto) 0.05 (0.01-0.20) K/uL Sodium 141 (136-145) mmol/L Potassium 3.7 (3.5-5.1) mmol/L Chloride 104 (98-107) mmol/L Carbon Dioxide 25 (21-32) mmol/L Anion Gap 12 H (3-11) BUN 18 (6-23) mg/dl Creatinine 0.60 (0.6-1.2) mg/dl Est Cr Clr Drug Dosing 76.4 ml/min Est GFR ( Amer) 97.0 ml/min Est GFR (Non-Af Amer) 83.7 ml/min BUN/Creatinine Ratio 30.0 H (10-20) Glucose 135 H (70-99(Fasting)) mg/dl Calcium 9.3 (8.6-10.3) mg/dl SARS-CoV-2, RNA, NAAT NEGATIVE (NEGATIVE) 04/06/23 Range/Units 06:14 WBC (4.8-10.8) K/ul RBC (4.20-5.40) M/uL Hgb (12.0-16.0) g/dl Hct (37.0-47.0) % MCV (80.0-100.0) fL MCH (25.0-34.0) pg MCHC (32.0-36.0) g/dL RDW Std Deviation (36.4-46.3) fL RDW Coeff of Albino (11.5-14.5) % Plt Count (130-400) K/uL MPV (9.4-12.4) fL Immature Gran % (Auto) % Neut % (Auto) % Lymph % (Auto) % [place] % (Auto) % Eos % (Auto) % Baso % (Auto) % Neut # (Auto) (1.40-6.50) K/uL Lymph # (Auto) (1.2-3.4) K/uL [place] # (Auto) (0.11-0.59) K/uL Eos # (Auto) (0-0.50) K/uL Baso # (Auto) (0-0.2) K/uL Immature Gran # (Auto) (0.01-0.20) K/uL Sodium 140 (136-145) mmol/L Potassium 3.8 (3.5-5.1) mmol/L Chloride 105 (98-107) mmol/L Carbon Dioxide 26 (21-32) mmol/L Anion Gap 9 (3-11) BUN 23 (6-23) mg/dl Creatinine 0.69 (0.6-1.2) mg/dl Est Cr Clr Drug Dosing 66.4 ml/min Est GFR ( Amer) 92.6 ml/min Est GFR (Non-Af Amer) 79.9 ml/min BUN/Creatinine Ratio 33.3 H (10-20) Glucose 89 (70-99(Fasting)) mg/dl Calcium 8.6 (8.6-10.3) mg/dl SARS-CoV-2, RNA, NAAT (NEGATIVE)
[2023-04-06] MEDS ORDERED: MULTIVITAMIN TAB PO SCH (09:00)
[2023-04-06] MEDS ORDERED: ATENOLOL 50 MG TABLET PO SCH (09:00)
[2023-04-06] MEDS ORDERED: FUROSEMIDE 20 MG TAB PO SCH (09:00)
[2023-04-06] MEDS: CEROVITE ADV FORMULA TAB PO SCH (09:14)
[2023-04-06] MEDS: ASPIRIN 81 MG ECTAB PO SCH (09:14)
[2023-04-06] MEDS: POTASSIUM CHLORIDE 10 MEQ TABCR PO SCH (09:14)
[2023-04-06] MEDS: DOCUSATE SODIUM 100 MG CAP PO SCH (09:15)
--- NOTE | 2023-04-06 21:04 | Discharge Summary ---
Date of Service April 06, 2023 Admission HPI Per Admitting Provider 83-year-old female with past medical history significant for hypertension, high cholesterol, hypothyroidism, Diastolic heart failure who presents with ongoing left shoulder pain. Patient has pain interfering with her daily activities. She has failed conservative measures. She has previous right reverse shoulder replacement and has done well. She would like to proceed with surgical intervention. Patient denies headaches, sweats, fevers, chills, double vision, blurred vision, cough, sore throat, dysphagia, chest pain, sob, wheezing, n/v/d/c, numbness, tingling, fatigue, urinary symptoms, mood disorders. ROS pos itive for left shoulder pain and stiffness. Admission Exam Per Admitting Provider Constitutional: well developed and well nourished; no acute distress Eyes: PERRL, conjunctivae normal, anicteric sclerae ENMT: external ear and nose normal, oropharynx normal Neck: trachea midline, no thyromegaly Respiratory: normal respiratory effort, lungs clear to auscultation Cardiovascular: RRR, no murmur, no edema Musculoskeletal: Left shoulder: Crepitation with range of motion. Diffuse lateral arm tenderness and tenderness anterior glenoid. Positive impingement signs. Left glenohumeral joint is [id number] crepitation. Range of motion: 45 degrees of active abduction, 45 degrees of forward flexion, 10 degrees of external rotation. Skin: no rashes, warm and dry Neurologic: patellar DTR's 2+ bilat, sensation intact Psychiatric: A+Ox3, euthymic affect Principal Diagnosis Left shoulder osteoarthritis Discharge Exam Left shoulder: Dressing is clean, dry, intact. Sling in place. Fingers are mobile. Patient able to extend wrist extend her thumb. Still some numbness likely residual from nerve block. Distally neurovascular status and sensation is grossly intact. Discharge Data Allergies Allergy/AdvReac Type Severity Reaction Status Date / Time Sulfa (Sulfonamide Allergy Mild Rash Verified 04/05/23 07:17 Antibiotics) sulfamethoxazole Allergy Mild Rash Verified 04/05/23 07:17 [From Bactrim] trimethoprim [From Bactrim] Allergy Mild Rash Verified 04/05/23 07:17 Consultations 03/30/23 16:24 Consult Hospitalist Routine Procedures Performed Operation Date: 04/05/23 09:30 Actual Procedures p Left Reverse Total Shoulder Arthroplasty(Left) - Victor Hugo Zaidi MD Ordered Studies 04/05/23 05:00 US - OR guided needle placemen Routine Hospital Course (1) Primary osteoarthritis, left shoulder: Postop day #1 left reverse total shoulder arthroplasty -Pain management as written -PT/OT: No shoulder range of motion. May do elbow/wrist/hand motion, shrugs, pendulums -DVT prophylaxis: SCDs, aspirin 81 mg daily -AM labs: Hemoglobin 11.6 from 13.8 preop. Acute blood loss anemia due to surgical loss versus dilutional. -Discharge planning: Plan on discharge home later today. Lab Results 04/05/23 04/05/23 04/06/23 Range/Units 15:10 Unknown 06:14 WBC 10.48 (4.8-10.8) K/ul RBC 3.72 L (4.20-5.40) M/uL Hgb 11.6 L (12.0-16.0) g/dl Hct 34.9 L (37.0-47.0) % MCV 93.8 (80.0-100.0) fL MCH 31.2 (25.0-34.0) pg MCHC 33.2 (32.0-36.0) g/dL RDW Std Deviation 47.3 H (36.4-46.3) fL RDW Coeff of [place] 13.8 (11.5-14.5) % Plt Count 192 (130-400) K/uL MPV 11.0 (9.4-12.4) fL Immature Gran % (Auto) 0.5 % Neut % (Auto) 66.0 % Lymph % (Auto) 22.3 % [place] % (Auto) 10.9 % Eos % (Auto) 0.0 % Baso % (Auto) 0.3 % Neut # (Auto) 6.92 H (1.40-6.50) K/uL Lymph # (Auto) 2.34 (1.2-3.4) K/uL [place] # (Auto) 1.14 H (0.11-0.59) K/uL Eos # (Auto) 0.00 (0-0.50) K/uL Baso # (Auto) 0.03 (0-0.2) K/uL Immature Gran # (Auto) 0.05 (0.01-0.20) K/uL Sodium 141 (136-145) mmol/L Potassium 3.7 (3.5-5.1) mmol/L Chloride 104 (98-107) mmol/L Carbon Dioxide 25 (21-32) mmol/L Anion Gap 12 H (3-11) BUN 18 (6-23) mg/dl Creatinine 0.60 (0.6-1.2) mg/dl Est Cr Clr Drug Dosing 76.4 ml/min Est GFR ( Amer) 97.0 ml/min Est GFR (Non-Af Amer) 83.7 ml/min BUN/Creatinine Ratio 30.0 H (10-20) Glucose 135 H (70-99(Fasting)) mg/dl Calcium 9.3 (8.6-10.3) mg/dl SARS-CoV-2, RNA, NAAT NEGATIVE (NEGATIVE) 04/06/23 Range/Units 06:14 WBC (4.8-10.8) K/ul RBC (4.20-5.40) M/uL Hgb (12.0-16.0) g/dl Hct (37.0-47.0) % MCV (80.0-100.0) fL MCH (25.0-34.0) pg MCHC (32.0-36.0) g/dL RDW Std Deviation (36.4-46.3) fL RDW Coeff of [place] (11.5-14.5) % Plt Count (130-400) K/uL MPV (9.4-12.4) fL Immature Gran % (Auto) % Neut % (Auto) % Lymph % (Auto) % [place] % (Auto) % Eos % (Auto) % Baso % (Auto) % Neut # (Auto) (1.40-6.50) K/uL Lymph # (Auto) (1.2-3.4) K/uL [place] # (Auto) (0.11-0.59) K/uL Eos # (Auto) (0-0.50) K/uL Baso # (Auto) (0-0.2) K/uL Immature Gran # (Auto) (0.01-0.20) K/uL Sodium 140 (136-145) mmol/L Potassium 3.8 (3.5-5.1) mmol/L Chloride 105 (98-107) mmol/L Carbon Dioxide 26 (21-32) mmol/L Anion Gap 9 (3-11) BUN 23 (6-23) mg/dl Creatinine 0.69 (0.6-1.2) mg/dl Est Cr Clr Drug Dosing 66.4 ml/min Est GFR ( Amer) 92.6 ml/min Est GFR (Non-Af Amer) 79.9 ml/min BUN/Creatinine Ratio 33.3 H (10-20) Glucose 89 (70-99(Fasting)) mg/dl Calcium 8.6 (8.6-10.3) mg/dl SARS-CoV-2, RNA, NAAT (NEGATIVE) Total Time Total Time Spent Total Time Spent (In Minutes): 20 Discharge Plan Discharge Items Patient Disposition: Home - Home Health Services Reason For Visit: Left Shoulder Primary Osteoarthritis Discharge Diagnosis: Left shoulder osteoarthritis, rotator cuff tear Activity: Per Instructions section Non-emergency contact: Surgeon Call non-emergency contact if: you have any medication questions, your pain is not controlled, your pain is concerning for you, you have a fever, your temperature is above 101, your wound has increased redness and your wound has increased drainage Follow-up/Referrals: Kenneth Griffin M.D. [Primary Care Provider] - Diet: Regular Addtl Attending Provider Instructions: ACTIVITY RECOMMENDATIONS: SELF CARE INSTRUCTIONS AFTER TOTAL SHOULDER ARTHROPLASTY REVERSE A. You may do daily exercises as taught in physical therapy while in hospital. No lifting with the operative arm. B. You are to wear your sling/immobilizer at all times EXCEPT when performing your daily exercises and for hygiene purposes. C. You may perform dry, daily dressing changes. Please keep your incision covered. You may shower 48 hours after surgery. Do not apply soap or any ointment/lotions directly over incision. Do not soak incision in bath tub/swimming pool. D. You may use ice as needed to operative shoulder. SPECIAL CARE INSTRUCTIONS: VERY IMPORTANT TO READ AND REVIEW A. There are a few signs you need to watch for after you are home. Call [facility] at [phone] if you experience any of the followin. Increased severe shoulder pain. Some pain is expected especially when you exercise. 2. Increased swelling in you shoulder or arm; pain or swelling in either upper extremity. 3. Any fluid drainage from the incision. 4. Shortness of breath or chest pain. B. Please call [facility] at [phone] if you have any questions or concerns about your operation or recovery. C. Call your physician if: 1. Temperature is greater than 101 degrees (F). 2. Pain is not relieved by prescribed pain medications. 3. Increase drainage or redness from incision. 4. Unanswered questions or concerns. FOLLOW UP VISIT: Please call [facility] at [phone] to schedule a follow up appointment with Dr. Zaidi or his PA in 12-14 days from your surgery date. Stand-Alone Forms: My [facility] [employer], Pain - Opioid Pain Management Medications and DC Order Prescriptions: New acetaminophen [Tylenol Extra Strength] 500 mg Tablet 1,000 mg PO Q8 Qty: 60 0RF oxycodone 5 mg Tablet 5 - 10 mg PO .Q4h-6h MDD 6 PRN (Reason: pain) Qty: 30 0RF Rx Instructions: Ongoing therapy, Dr. Zaidi supervising Continued aspirin 81 mg Tablet 81 mg PO QPM furosemide [Lasix] 20 mg Tablet 20 mg PO QAM Centrum Women 18-400 mg-mcg Tablet 1 tab PO QAM sennosides [Senokot] 8.6 mg Tablet 8.6 mg PO BID PRN (Reason: Constipation) tizanidine 2 mg Tablet 2 mg PO HS trazodone 50 mg Tablet 50 mg PO HS lorazepam 0.5 mg Tablet 0.5 mg PO HS PRN (Reason: Anxiety) potassium chloride 2.5 mEq Tablet 10 meq PO BID PreserVision AREDS 2,148 mcg-113 mg-45 mg-17.4mg Tablet 2 tab PO BID Rx Instructions: administer with AM and PM meals levothyroxine 125 mcg Tablet 125 mcg PO QAM docusate sodium [Stool Softener] 100 mg Capsule 100 mg PO BID atenolol 100 mg tablet 100 mg PO QAM valsartan 160 mg Tablet 320 mg PO HS Discontinued acetaminophen [Tylenol Extra Strength] 500 mg Tablet 1,000 mg PO Q8 Qty: 60 0RF oxycodone 5 mg Tablet 5 - 10 mg PO .Q4h-6h MDD 6 PRN (Reason: pain) Qty: 30 0RF Rx Instructions: Ongoing therapy, Dr. Zaidi supervising Zachary/Other Patient Handouts: Total Shoulder Replacement Surgery Admission Data Admit Date/Time: 04/05/23 11:58 Attending Provider: Victor Hugo Zaidi Admit Provider: Victor Hugo Zaidi Primary Care Provider: Kenneth Griffin Other Providers: Andrea Kim Thomas E. Other Interventions: Discharge Summary Assessment (RN) Last Done: 04/06/23 09:44
== END 2023-04-06 10:59 | disposition home health service (06) ==
LOC: 3W 06:49 → ASU 06:49